=== PATIENT | male | born 1940 | race Caucasian/White ===

== ENCOUNTER 2016-10-30 15:43 | Inpatient (IN) ==
[2016-10-30] MEDS ORDERED: Aspirin 81 MG TAB.CHEW PO ONE (16:24)
[2016-10-30 17:00] LABS: INR 1.1; Prothrombin Time 11.4 Seconds (9.4-12.1)
[2016-10-30 17:02] LABS: Activated Partial Thrombo Time 33.6 Seconds (26.0-36.0); Basophils % 0.6 %; Eosinophils # 0.1 K/mcL (0.0-0.6); Eosinophils % 1.3 %; Hematocrit 47.2 % (37.5-50.1); Hemoglobin 15.2 g/dL (12.9-16.9); Immature Granulocytes % 0.3 % (0-4); Lymphocytes # 0.9 K/mcL (0.6-4.6); Lymphocytes % 12.5 %; Mean Corpuscular HGB Conc 32.2 g/dL (31.6-35.5); Mean Corpuscular Hemoglobin 30.2 pg (28.0-33.3); Mean Corpuscular Volume 93.7 fL (83.0-100.0); Monocytes # 0.5 K/mcL (0.0-1.3); Monocytes % 7.3 %; Neutrophils # 5.6 K/mcL (1.6-8.9); Platelet Count 263 K/mcL (140-400); Red Blood Count 5.04 M/mcL (4.19-5.50); Red Cell Distribution Width 12.9 % (11.5-14.5)
--- NOTE | 2016-10-30 17:04 | Emergency Department Note ---
Disposition Clinical Impression: NSTEMI (non-ST elevated myocardial infarction) Disposition: Admitted As Inpatient Condition: Fair Referrals: Darcy Garcia MD [Primary Care Provider] - Forms: ED Satisfaction Letter Time of Disposition: 17:53 Chest Pain HPI - General Chief Complaint: ED Chest Pain Stated Complaint: "heart problems" Time Seen by Provider: 10/30/16 15:46 Source: patient, family Mode of arrival: private vehicle Limitations: no limitations Vital Signs Reviewed: Yes Nursing Notes Reviewed: Yes - History of Present Illness Pt complaint: chest pain Onset (ago): hour(s) (About 2-1/2 hours ago) Duration: constant (It lasted about 20 minutes) Onset: after eating (Patient had just finished eating at [employer] and was walking to his car when he felt the discomfort.) Pain Location: substernal (Beneath the lower sternum) Severity: moderate Severity scale (1-10): 0 (Pain is gone at this point) Quality: tightness Pain Radiation: none Improves with: nothing Worsens with: nothing Associated symptoms: Reports: nausea (He felt the discomfort in his epigastrium that he says it felt like he had just eaten a big meal) Treatments prior to arrival chest pain: none - Related Data Home Medications Medication Instructions Recorded Confirmed Metoprolol [Lopressor] 25 mg PO BID 05/12/16 05/12/16 Aspirin 10/30/16 10/30/16 Allergies Allergy/AdvReac Type Severity Reaction Status Date / Time No Known Allergies Allergy Verified 05/12/16 15:28 All systems ED: reviewed and negative except as stated. Constitutional: Denies: fever, chills ENT ED: Denies: ear pain, throat pain, congestion Cardiovascular: Reports: chest pain. Denies: palpitations, dyspnea on exertion Respiratory: Denies: cough, dyspnea Gastrointestinal: Denies: vomiting Musculoskeletal: Denies: back pain Integumentary: Denies: rash Neurological: Denies: headache Chest Pain PMH - Past Medical History Medical history: Reports: hyperlipidemia Surgical history: Reports: non-contributory Psychiatric history: Reports: no psych history - Social History Smoking Status: Never smoker Alcohol use: Reports: none Drug use: Reports: none Physical Exam - General Limitations: no limitations General appearance: alert, in no apparent distress - Head Head exam: atraumatic, normocephalic - Eye Eye exam: Present: normal appearance, PERRL, EOMI - ENT ENT exam: normal exam, mucous membranes moist, normal external ear exam - Neck Neck exam: Present: normal inspection, full ROM, trachea midline - Chest Chest inspection: Present: normal inspection, symmetric chest wall rise. Absent : tenderness - Respiratory Respiratory exam: Present: normal lung sounds bilaterally. Absent: respiratory distress, wheezes - Cardiovascular Cardiovascular exam: Present: regular rate, normal rhythm, normal heart sounds - Abdominal Exam Abdominal exam: Present: soft, Non-Tender, normal bowel sounds - Extremities Exam Extremities exam: Present: normal inspection, full ROM. Absent: pedal edema - Neurological Exam Neurological exam: Present: alert, oriented X3 - Psychiatric Psychiatric exam: Present: normal affect, normal mood - Skin Skin exam: Present: warm, dry. Absent: rash Course Course Narrative: Patient presents to emergency with chest discomfort. It came on after eating at [employer]. It was associated with some lower central discomfort and some bloated feeling in his abdomen. This patient has never had trouble with his heart before. He has been physically active bleeding up until this moment. It would surprise me if this is a cardiac cause of chest discomfort. However he does have nonspecific ST abnormalities in precordial leads and we have no old EKGs to compare. Therefore we will do a cardiac workup and evaluate for other dangerous causes of chest pain. He is asymptomatic at this time so I am not initiating any actual treatment. Disposition will be based on diagnostic results and reevaluation. We will of course immediately reassessed patient if he starts to have symptoms again. - Reevaluation(s) Reevaluation #1: The patient's troponin came back elevated. Coupling this with an abnormal EKG ( the chronicity of the changes we are unable to ascertain) and the symptoms that the patient described, this is clearly an acute coronary syndrome issue. I spoke to the ophthalmic surgical assistant, Dr. Schaeffer, and he recommended admission to the hospital and starting heparin. He recommended admission to the hospitalist service. I went and called the hospitalist who has accepted the patient for admission. I counseled the patient and family on the diagnosis and what to expect in house. Time: 17:51 - Consultations Consultation #1: Dr. Schaeffer, cardiology - I discussed the case including presentation and diagnostic results and patient's current condition with the ophthalmic surgical assistant. He recommended heparinization and admission to the hospitalist service and a cardiology consult for possible heart catheterization tomorrow. Time: 17:51 Consultation #2: Dr. An, hospitalist - I discussed the case with the hospitalist. He has accepted the patient for admission. Time: 17:52 Vital Signs Temperature 97.8 F 10/30/16 15:59 Pulse Rate 74 10/30/16 15:59 Respiratory Rate 16 10/30/16 15:59 Blood Pressure 147/81 10/30/16 15:59 O2 Sat by Pulse Oximetry 97 10/30/16 15:59 Temperature 97.8 F 10/30/16 15:59 Pulse Rate 69 10/30/16 16:50 Respiratory Rate 16 10/30/16 16:50 Blood Pressure 149/88 10/30/16 16:50 O2 Sat by Pulse Oximetry 99 10/30/16 16:50 Oxygen Delivery Oxygen Delivery Room Air Chest Pain - Lab Data Lab results reviewed: Yes I reviewed the patient's lab results. Result diagrams: 10/30/16 16:48 10/30/16 16:48 Lab Results 10/30/16 10/30/16 10/30/16 Range/Units 16:48 16:48 16:48 WBC (4.3-11.1) K/mcL RBC (4.19-5.50) M/mcL Hgb (12.9-16.9) g/dL Hct (37.5-50.1) % MCV (83.0-100.0) fL MCH (28.0-33.3) pg MCHC (31.6-35.5) g/dL RDW (11.5-14.5) % Plt Count (140-400) K/mcL MPV (9.4-12.4) fL Immature Gran % (0-4) % Seg Neutrophils % % Lymphocytes % % Monocytes % % Eosinophils % % Basophils % % Neutrophils # (1.6-8.9) K/mcL Lymphocytes # (0.6-4.6) K/mcL Monocytes # (0.0-1.3) K/mcL Eosinophils # (0.0-0.6) K/mcL Basophils # (0.0-0.2) K/mcL PT 11.4 (9.4-12.1) Seconds INR 1.1 APTT 33.6 (26.0-36.0) Seconds Sodium (136-145) mEq/L Potassium (3.5-4.5) mEq/L Chloride (98-109) mEq/L Carbon Dioxide (19-29) mEq/L BUN (8-26) mg/dL Creatinine (0.72-1.25) mg/dL Est GFR ( Amer) (> 60) Est GFR (Non-Af Amer) (> 60) BUN/Creatinine Ratio (6-26) Glucose (70-99) mg/dL Calculated Osmolality (280-300) Calcium (8.6-10.8) mg/dL Total Bilirubin 1.4 H (0.2-1.2) mg/dL Direct Bilirubin 0.5 (0.0-0.5) mg/dL Indirect Bilirubin 0.9 (0.0-1.2) mg/dL AST 21 (5-34) Units/L ALT 26 (0-55) Units/L Alkaline Phosphatase 134 H (38-126) Units/L Troponin I (0-0.03) ng/mL Serum Total Protein 7.6 (6.0-8.3) g/dL Albumin 3.6 (3.5-5.0) g/dL Globulin 4.0 H (2.4-3.5) g/dL Albumin/Globulin Ratio 0.9 L (1.1-2.2) Amylase 95 (25-125) Units/L Lipase 49 (8-78) Units/L 10/30/16 10/30/16 10/30/16 Range/Units 16:48 16:48 16:48 WBC 7.1 (4.3-11.1) K/mcL RBC 5.04 (4.19-5.50) M/mcL Hgb 15.2 (12.9-16.9) g/dL Hct 47.2 (37.5-50.1) % MCV 93.7 (83.0-100.0) fL MCH 30.2 (28.0-33.3) pg MCHC 32.2 (31.6-35.5) g/dL RDW 12.9 (11.5-14.5) % Plt Count 263 (140-400) K/mcL MPV 10.0 (9.4-12.4) fL Immature Gran % 0.3 (0-4) % Seg Neutrophils % 78.0 % Lymphocytes % 12.5 % Monocytes % 7.3 % Eosinophils % 1.3 % Basophils % 0.6 % Neutrophils # 5.6 (1.6-8.9) K/mcL Lymphocytes # 0.9 (0.6-4.6) K/mcL Monocytes # 0.5 (0.0-1.3) K/mcL Eosinophils # 0.1 (0.0-0.6) K/mcL Basophils # 0.0 (0.0-0.2) K/mcL PT (9.4-12.1) Seconds INR APTT (26.0-36.0) Seconds Sodium 142 (136-145) mEq/L Potassium 4.0 (3.5-4.5) mEq/L Chloride 107 (98-109) mEq/L Carbon Dioxide 25 (19-29) mEq/L BUN 17 (8-26) mg/dL Creatinine 1.35 H (0.72-1.25) mg/dL Est GFR ( Amer) > 60 (> 60) Est GFR (Non-Af Amer) 52 L (> 60) BUN/Creatinine Ratio 13 (6-26) Glucose 108 H (70-99) mg/dL Calculated Osmolality 296 (280-300) Calcium 8.7 (8.6-10.8) mg/dL Total Bilirubin (0.2-1.2) mg/dL Direct Bilirubin (0.0-0.5) mg/dL Indirect Bilirubin (0.0-1.2) mg/dL AST (5-34) Units/L ALT (0-55) Units/L Alkaline Phosphatase (38-126) Units/L Troponin I 0.07 H* (0-0.03) ng/mL Serum Total Protein (6.0-8.3) g/dL Albumin (3.5-5.0) g/dL Globulin (2.4-3.5) g/dL Albumin/Globulin Ratio (1.1-2.2) Amylase (25-125) Units/L Lipase (8-78) Units/L - Radiology Data Radiology results reviewed: Yes I reviewed the patient's radiology results. - EKG Data EKG attestation: Yes I reviewed and interpreted this EKG. EKG shows normal: sinus rhythm, axis, intervals, QRS complexes ST segment depression in: I, aVL, v2, v3, v4 Interpretation: nonspecific ST-T wave changes
[2016-10-30 17:08] LABS: BUN/Creatinine Ratio 13 (6-26); Blood Urea Nitrogen 17 mg/dL (8-26); Calcium 8.7 mg/dL (8.6-10.8); Carbon Dioxide 25 mEq/L (19-29); Chloride 107 mEq/L (98-109); Glucose 108 mg/dL (70-99); Osmolality,Calculated 296 (280-300); Sodium 142 mEq/L (136-145); eGFR For African Americans > 60 (> 60); eGFR For Non-African Americans 52 (> 60)
[2016-10-30 17:09] LABS: Albumin 3.6 g/dL (3.5-5.0); Albumin/Globulin Ratio 0.9 (1.1-2.2); Bilirubin,Direct 0.5 mg/dL (0.0-0.5); Bilirubin,Indirect 0.9 mg/dL (0.0-1.2); Bilirubin,Total 1.4 mg/dL (0.2-1.2); Total Protein 7.6 g/dL (6.0-8.3)
[2016-10-30] MEDS ORDERED: *HR* Heparin 5,000 UNIT/ML VIAL IVP ONE (17:42)
[2016-10-30] MEDS ORDERED: *HR* Heparin 5,000 UNIT/ML VIAL IVP PRN ×2 (17:42)
[2016-10-30] MEDS: Heparin 25,000 UNIT/500 ML D5W 25,000 UNIT/500 ML MLS IVC SCH (18:15)
[2016-10-30] MEDS ORDERED: Naloxone 0.4 MG/ML INJ IVP PRN (19:33)
[2016-10-30] MEDS ORDERED: *HR* Morphine 2 MG/ML SYRINGE IVP PRN (19:33)
--- NOTE | 2016-10-30 19:41 | Internal Med History&Physical ---
Date of Encounter: 10/30/16 Time of Encounter: 08:15 Assessment and Plan (1) NSTEMI (non-ST elevated myocardial infarction) Current visit: Yes Status: Suspected Patient with chest pain with elevation in troponins. Observation in the hospital. IV heparin and management for NSTEMI. Trend troponins. Telemetry. Cardiology consult. Continue beta lavern, aspirin. Patient reports possible adverse reaction to atorvastatin. We will place patient on simvastatin instead. High risk for complications. Will get 2-D echocardiogram in the morning. May need cardiac catheterization or cardiac stress test in the morning. (2) Essential hypertension Current visit: Yes Status: Chronic Blood pressure currently elevated. We will resume home medications. Monitor blood pressure closely. (3) Hyperlipidemia Current visit: Yes Status: Chronic Check lipid profile. Start simvastatin. Qualifiers: Hyperlipidemia type: mixed hyperlipidemia Qualified Code(s): E78.2 - Mixed hyperlipidemia Internal Medicine - H&P: HPI Chief complaint: Chest pain Admitted From: Emergency Dept Plans for Post Hospital Care: Home History of present illness: Mr. Breaux is a 76 year old male patient with history of essential hypertension, hyperlipidemia who presented to the ER with complaints of chest pain that began this afternoon. Patient had just walked from his car to his home when he began to develop central chest pain that was nonradiating. Not associated with any shortness of breath. No palpitations. No cough or sputum production. No dizziness or lightheadedness. Has never had similar symptoms in the past. He had a stress test done several years back which was negative. Patient was up and was started on atorvastatin recently for borderline hypercholesterolemia. However he developed some cramps in his hands and he was taken off it for the past week. His cramps seem to have subsided. Past Med Surg Social Fam HX - Past Medical History Medical history: hyperlipidemia, hypertension Psychiatric history: no psych history - Past Surgical History Surgical History: non-contributory - Social History Smoking Status: Never smoker Smokeless Tobacco Status: No Alcohol use: none Drug use: none - Additional Family History Additional family history: Heart disease in the family including parents and siblings. Internal Medicine - H&P: Meds Metoprolol [Lopressor] 25 mg PO BID 05/12/16 [History] Aspirin Enteric Coated [Aspirin EC] 81 mg PO DAILY 10/30/16 [History] Atorvastatin Calcium [Lipitor] 20 mg PO DAILY 10/30/16 [History] Juice Plus 1 cap PO DAILY 10/30/16 [History] Vit C/Vit E/Lutein/Min/[place]-3 [Ocuvite Softgel] 1 each PO DAILY 10/30/16 [ History] Allergies No Known Allergies Allergy (Verified 05/12/16 15:28) All Systems PM: A 10-system review of systems was performed and is negative for pertinent findings except as documented above in the HPI. - Constitutional Constitutional: no chills, no fever(s), no night sweats - EENT Eyes: no change in vision, no discharge, no pain, no photophobia Ears: no ear discharge, no ear pain, no tinnitus Nose, mouth and throat: no dysphagia, no nasal discharge, no neck pain, no sore throat - Cardiovascular Cardiovascular ROS IM: chest pain, no diaphoresis, no dyspnea, no lightheadedness, no palpitations, no syncope - Respiratory Respiratory: no cough, no dyspnea, no wheezing, no excessive phlegm production - Gastrointestinal Gastrointestinal: dyspepsia, no abdominal pain, no diarrhea, no hematemesis, no hematochezia, no melena, no nausea, no vomiting - Musculoskeletal Musculoskeletal ROS IM: no numbness, no tingling - Integumentary Integumentary IM: no rash, no unusual bruising - Neurological Neurological ROS: no confusion, no convulsions, no focal weakness, no numbness, no tingling, no tremor(s) - Hematologic/Lymphatic Hematologic/Lymphatic: no easy bruising - Constitutional Vitals: Temp Pulse Resp BP Pulse Ox 97.8 F 73 17 145/86 99 10/30/16 15:59 10/30/16 19:29 10/30/16 19:29 10/30/16 19:29 10/30/16 19:29 General appearance: Present: cooperative, mild distress, A&O X 3, pleasant, answers questions appropriately - Eye Eye exam: Present: EOMI, PERRL, conjuntiva pink, sclera anicteric - Neck Neck exam general surgery: Present: supple, trachea midline. Absent: lymphadenopathy - Respiratory Respiratory exam: Present: CTAB. Absent: accessory muscle use, rales, rhonchi, wheezes - Cardiovascular Cardiovascular exam: Present: RRR, +S1, +S2. Absent: diastolic murmur, gallop, rubs, systolic murmur - GI/Abdominal GI/Abdominal exam: Present: normal bowel sounds, soft, no peritoneal signs. Absent: distended, tenderness - Extremities Exam Extremities exam: Present: warm, radial pulses palpable and symetrical. Absent : calf tenderness, cyanotic, pedal edema - Neurological Exam Neurological exam: Present: alert, oriented X3, no focal deficits, strengths equal and symetr throughout. Absent: facial droop, speech deficit - Psychiatric Psychiatric exam: Present: normal affect, normal mood - Skin Skin exam: Present: dry, intact Internal Med - H&P Results - Labs CBC & Chem 7: 10/30/16 16:48 10/30/16 16:48 - EKG Data -: EKG Interpreted by Myself EKG shows normal: sinus rhythm - EKG Data EKG comments: 10/30/16 20:39 ST depression present in I, aVL, v2, v3, v4 - Impressions Chest x-ray shows no acute process - Attending Attestation This document has been at least partially created by [employer] recognition technology by Dr. Garces. Errors in grammar, wording or other phrases may exist. If errors are found after the documentation is signed, they will be addressed individually in the addendum section of this document when appropriate.
[2016-10-30 19:54] LABS: Hemoglobin A1C 5.5 %
[2016-10-30 20:40] LABS: Phosphorous 2.4 mg/dL (2.3-4.7)
[2016-10-31 01:02] LABS: Activated Partial Thrombo Time 152.5 Seconds (26.0-36.0)
[2016-10-31 01:12] LABS: Heparin anti-factor XA UFH 0.54 IU/mL (0.30-0.70)
[2016-10-31 05:59] LABS: Basophils # 0.1 K/mcL (0.0-0.2); Basophils % 0.7 %; Eosinophils # 0.1 K/mcL (0.0-0.6); Eosinophils % 1.8 %; Hematocrit 41.6 % (37.5-50.1); Hemoglobin 13.9 g/dL (12.9-16.9); Immature Granulocytes % 0.3 % (0-4); Lymphocytes # 1.1 K/mcL (0.6-4.6); Lymphocytes % 15.7 %; Mean Corpuscular HGB Conc 33.4 g/dL (31.6-35.5); Mean Corpuscular Hemoglobin 30.6 pg (28.0-33.3); Mean Corpuscular Volume 91.6 fL (83.0-100.0); Mean Platelet Volume 10.1 fL (9.4-12.4); Monocytes # 0.7 K/mcL (0.0-1.3); Monocytes % 9.4 %; Neutrophils # 5.1 K/mcL (1.6-8.9); Platelet Count 224 K/mcL (140-400); Red Blood Count 4.54 M/mcL (4.19-5.50); Red Cell Distribution Width 12.8 % (11.5-14.5); Segmented Neutrophils % 72.1 %
[2016-10-31 06:04] LABS: INR 1.1
[2016-10-31 06:14] LABS: Chol/HDL Ratio 3.5 (0-4.9)
[2016-10-31] MEDS ORDERED: Nitroglycerin 1 INCH/GM PACKET TP ONE (06:55)
[2016-10-31] MEDS ORDERED: 0.9 % Sodium Chloride 1,000 ML IVC SCH (09:30)
[2016-10-31] MEDS: Aspirin Enteric Coated 81 MG Tablet PO SCH (09:36)
--- NOTE | 2016-10-31 09:37 | Cardiology Consult Note ---
Date of Encounter: 10/31/16 Time of Encounter: 08:00 Assessment and Plan (1) NSTEMI (non-ST elevated myocardial infarction) Current Visit: Yes Status: Suspected Per cardiology: -Patient with one episode of chest pain with excertion. Pain relieved by rest. -Troponins 0.07, 0.36, 0.40. -Patient with history of HTN, hyperlipidemia, and advanced age. -Echocardiogram pending. -Creatinine today 1.35. Baseline 1.0-1.1. -On asa, beta lavern, statin, and heparin drip, -Patient reports intolerance to atorvastatin, simvastatin ordered per primary service. Educated patient on need for statin and patient agreeable to try simvastatin. -Will order IV hydration for slight elevation in creatinine today. -Will order cardiac diet today. -Will perform left heart catheterization 11/01/16, unless patient acutely worsens or if kidney function worsens. -Discussed risks and benefits of LHC with patient and family. Patient and family agreeable for LHC. - notified of need for LHC 11/01/16. (DAILY) (2) Chest pain Current Visit: No Status: Acute Per cardiology: -Patient with one episode of midsternal chest pressure upon excertion. -Chest pain relieved with rest. -Tropnins elevated. Suspect NSTEMI. Cardiac rehab ordered. -On asa, statin, beta lavern, and heparin drip. -CUrrently chest pain free. -Plan for LHC tomorrow after IV hydration today. (DAILY) Qualifiers: Chest pain type: other chest pain Qualified Code(s): R07.89 - Other chest pain; R07.8 - Other chest pain (3) Essential hypertension Current Visit: Yes Status: Chronic Per cardiology: -Patient with known history of hypertension. -Currently on beta lavern. -BP 120-150s sytolic and 70-90 diastolic, -Home medications resumed per primary service. -Will continue to monitor. (DAILY) (4) Hyperlipidemia Current Visit: Yes Status: Chronic Per cardiology: -Patient states known history of "borderline" hyperlipidemia. -Patient failed outpatient treatment with atorvastatin due to myalgias. -Simvastatin ordered per primary service. -Triglycerides 84, Cholesterol 138, LDL 81, HDL 39. -Will continue to monitor. (DAILY) Qualifiers: Hyperlipidemia type: mixed hyperlipidemia Qualified Code(s): E78.2 - Mixed hyperlipidemia (5) ELLA (acute kidney injury) Current Visit: Yes Status: Acute Per Cardiology: Mild. Has baseline normal kidney function. Will gently hydrate prior to cath and monitor. Discussion w patient/family: The assessment and plan as outlined above was discussed with the patient and/or family members who expressed understanding and agreement. All questions were answered. Thank you for involving us in the care of your patient. Please call with any questions. Patient was seen and examined with ENID Matute. Discussed and reviewed with . History of Present Illness Consult date: 10/30/16 Requesting physician: Alex Mckee Consult reason: NSTEMI Chief complaint: Chest pain History of present illness: Mr. Breaux is a 76 year old male who presented to the ER yesterday with one episode of mid sternal chest pressure. Patient states he was walking from his car into his house, when it felt like there was pressure in his chest. Patient states he went into the house and sat down and after 20 minutes the pain was relieved. Patient has never had chest pain prior. Patient states he has never had "heart problems" before. Patient states he has never had an echocardiogram prior. He states he had an excercise stress test "about 10 years ago." Patient states it was "normal." Patient currently chest pain free. (DAILY) Patient's risk factor for CAD include HTN, hyperlipidemia, and age. (DAILY) Past Med Surg Social Fam HX - Past Medical History Attestation: Yes The following information was validated with the patient. Source: patient, obtained from family Medical history: hyperlipidemia, hypertension Psychiatric history: no psych history - Past Surgical History Surgical History: non-contributory - Social History Smoking Status: Never smoker Smokeless Tobacco Status: No Alcohol use: none Drug use: none Medications and Allergies Metoprolol [Lopressor] 25 mg PO BID 05/12/16 [History] Aspirin Enteric Coated [Aspirin EC] 81 mg PO DAILY 10/30/16 [History] Atorvastatin Calcium [Lipitor] 20 mg PO DAILY 10/30/16 [History] Juice Plus 1 cap PO DAILY 10/30/16 [History] Vit C/Vit E/Lutein/Min/[place]-3 [Ocuvite Softgel] 1 each PO DAILY 10/30/16 [ History] Allergies No Known Allergies Allergy (Verified 05/12/16 15:28) All Systems Review: A 10-system review of systems was performed and is negative for pertinent findings except as documented above in the HPI. - Cardiovascular Cardiovascular: as per HPI, chest pain with exertion Physical Examination Vital Signs, Last 4 Hours Temp Pulse Resp BP Pulse Ox 10/31/16 07:22 98.4 F 72 16 127/77 99 10/31/16 05:37 98.5 F 87 16 146/90 93 L General: Conversant, No Apparent Distress HEENT: Atraumatic, Normocephaly, Mucus Membranes Moist Neck: No JVD, Normal carotid pulses Cardiac: Reg Rate and Rhythm, Normal S1 and S2, No Murmur Lungs: No Wheeze, Rales, Rhonchi Neuro: Alert and responsive, No focal deficits noted Abdomen: Soft, Non-Tender Skin: No rashes noted on visualized skin Musculoskeletal: No Chest Wall Tenderness Extremities: No Clubbing, No Cyanosis, No Edema, Normal Pulses Results 10/31/16 05:35 10/31/16 09:54 Lab Results 10/30/16 10/30/16 10/31/16 23:58 23:58 05:35 WBC 7.1 Hgb 13.9 Hct 41.6 Plt Count 224 INR APTT 152.5 H* D Troponin I 0.36 H* 10/31/16 10/31/16 05:35 05:35 WBC Hgb Hct Plt Count INR 1.1 APTT Troponin I 0.40 H* Impressions Chest X-Ray 10/30/16 16:24 IMPRESSION: No acute cardiopulmonary disease. D/ / Kim Ortiz MD / Kim Ortiz MD Interpreting Provider: Kim Ortiz MD Active Medications Aspirin (Aspirin Ec) 81 mg PO DAILY ABDIRASHID Stop: 05/02/17 09:01 Last Admin: 10/31/16 09:36 Dose: 81 mg Heparin Sodium (Porcine) (Heparin) 4,000 unit IVP Q6HR PRN PRN Reason: SEE COMMENTS Stop: 05/01/17 17:43 Heparin Sodium (Porcine) (Heparin) 2,000 unit IVP Q6H PRN PRN Reason: SEE COMMENTS Stop: 05/01/17 17:43 Heparin Sodium/Dextrose (Heparin 25,000 Unit/500 Ml D5w) 25,000 unit in 500 mls @ 26.671 mls/hr IVC .[id number] ABDIRASHID; 12 UNIT/KG/HR PRN Reason: Protocol Stop: 05/01/17 17:46 Last Titration: 10/31/16 02:05 Dose: 9 unit/kg/hr, 20.003 mls/hr Sodium Chloride (0.9 % Sodium Chloride) 1,000 mls @ 50 mls/hr IVC .Q20H ABDIRASHID Stop: 11/01/16 05:29 Metoprolol Tartrate (Lopressor) 25 mg PO BID [facility] Stop: 05/01/17 21:01 Last Admin: 10/31/16 09:35 Dose: 25 mg Morphine Sulfate (Morphine Sulfate) 2 mg IVP Q4HR PRN PRN Reason: Severe Pain (7-10) Stop: 05/01/17 19:34 Naloxone HCl (Narcan) 0.4 mg IVP Q2MIN PRN PRN Reason: Opioid Reversal Stop: 05/01/17 19:34 Simvastatin (Zocor) 20 mg PO HS ABDIRASHID PRN Reason: Protocol Stop: 05/01/17 21:16 Last Admin: 10/30/16 22:38 Dose: Not Given - Imaging and Cardiology Chest Xray: report reviewed Cardiac cath: pending - EKG Interpretation EKG results cardiology: personally reviewed (ECG with sinus rhythm, heart rate 67. ST depression noted in I, V2, V3, V4, and V5, and V6.), other (Telemtry reviewed with average HR 70, occasional PVCs. 2 episodes of couplet PVCs noted. 2 runs of non-sustained ventricular tachycardia. One episode 44 beats and the other 19 beats. Occasional PVCs noted.) Consult Discharge Plan - Plan Referrals: Darcy Garcia MD [Primary Care Provider] -
--- NOTE | 2016-10-31 10:03 | ECHO - Doppler Report ---
Echocardiogram Name: James Breaux Date of Study: 10/31/2016 Date: 1940 Ht: 73.0 in Medical Record#: [id number] Age: 76 Wt: 240.0 lb Gender: Male BSA: 2.33 Order #: [id number] Location: [facility] Room #: [id number] Reading Physician: Vipin Hazel MD, [facility] Retail Consultant: Rosalina Pyle Ordering Physician: Preston Garces MD Primary Physician: Darcy Garcia MD Indications: Chest pain/NSTEMI Impressions: LVEF 55-60%. No pulmonary hypertension. Mild left ventricular diastolic dysfunction. No significant valvular dysfunction. Left Ventricular Wall Motion: Rest Echo Findings All wall segments showed normal motion. Findings: Right Ventricle * Normal right ventricular structure and function. Aorta * Normally sized aortic root. Pericardium * The pericardium appears normal. ECG Findings * Normal sinus rhythm. Left Atrium * Mildly dilated left atrium. Tricuspid Valve * No tricuspid stenosis. * Trace tricuspid regurgitation. * Estimated RVSP is 22 mmHg. * Estimated RA pressure is 3-5 mmHg. * No pulmonary hypertension. Mitral Valve * Normal mitral valve structure. * Trace mitral regurgitation. * No mitral stenosis. Left Ventricle * Mild left ventricular diastolic dysfunction. * LVEF 55-60%. Aortic Valve * Normal aortic valve structure. * Trace aortic regurgitation. * No aortic stenosis. IVC * The IVC is not well evaluated. Interatrial Septum * Interatrial septum not well evaluated. Right Atrium * Right atrium is not well visualized. Study Quality * Technically sub-optimal due to body habitus. History Hypercholesteremia Family History of CAD Measurements: BP: 146/ 90 2D Normal Values RVIDd: 3.80 cm <2.7 cm IVSd: 1.00 cm 0.6 - 1.0 cm LVIDd: 4.90 cm 3.7 - 5.6 cm LVPWd: 1.00 cm 0.6 - 1.1 cm LVIDs: 3.20 cm 1.5 - 3.6 cm AO: 2.80 cm < 4.0 cm LA: 3.90 cm 2.0 - 4.0cm %FS: 34.70 cm >25 % LA volume: 52 Mitral Valve Peak E:.70 m/sec Peak A:.73 m/sec E/A Ratio:1 Peak E' Lat Zander:7.51 cm/s Peak E' Med Zander:6.63 cm/s E/E' Lat Ratio:9.3 E/E' Med Ratio:10.6 Tricuspid Valve TV Regurg Peak Grad: 22.00mmHg TV Regurg Peak Zander: 2.36m/sec Updated by Vipin Hazel MD, [facility] on 10/31/2016 9:56:48 AM electronically signed on 10/31/2016 9:57:15 AM with status of Final Wall Motion Cope: 1=Normal, 2=Hypokinesis, 3=Akinesis, 4=Dyskinesis, 5=Aneurysmal, 6=Hyperkinetic, X=Not Visualized (Blank)=Missing
[2016-10-31 10:16] LABS: BUN/Creatinine Ratio 13 (6-26); Blood Urea Nitrogen 12 mg/dL (8-26); Calcium 8.1 mg/dL (8.6-10.8); Carbon Dioxide 22 mEq/L (19-29); Chloride 109 mEq/L (98-109); Glucose 117 mg/dL (70-99); Osmolality,Calculated 289 (280-300); Sodium 139 mEq/L (136-145); eGFR For African Americans > 60 (> 60); eGFR For Non-African Americans > 60 (> 60)
--- NOTE | 2016-10-31 14:20 | Internal Med Progress Note ---
Date of Encounter: 10/31/16 Time of Encounter: 14:18 - Assessment and plan (1) NSTEMI (non-ST elevated myocardial infarction) Current Visit: Yes Status: Acute Assessment and plan: Patient has been admitted with chest pain and troponin elevation. Continue telemetry monitoring. Serum troponin currently trending down. Continue IV heparin drip along with aspirin and beta lavern. Cardiology consult appreciated, plan for possible left heart catheterization tomorrow. Supportive care. (2) ELLA (acute kidney injury) Current Visit: Yes Status: Resolved Assessment and plan: Likely related to prerenal/dehydration. Improved with IV hydration. (3) Essential hypertension Current Visit: Yes Status: Chronic Assessment and plan: Blood pressure well controlled. Continue home medications. (4) Hyperlipidemia Current Visit: Yes Status: Chronic Assessment and plan: Patient reports developing small joint pain in bilateral hands along with myalgia with statins in the past. Hold Zocor until left heart cath and determine further treatment. Qualifiers: Hyperlipidemia type: mixed hyperlipidemia Qualified Code(s): E78.2 - Mixed hyperlipidemia - Subjective Interval history: Feels better. Improved chest pain. No shortness of breath or palpitations. - Constitutional Vitals: Temp Pulse Resp BP Pulse Ox 98.4 F 75 18 111/75 96 10/31/16 11:05 10/31/16 11:05 10/31/16 11:05 10/31/16 11:05 10/31/16 11:05 General appearance: Present: A&O X 3, answers questions appropriately - Respiratory Respiratory exam: Present: CTAB. Absent: accessory muscle use, rales, rhonchi, wheezes - Cardiovascular Cardiovascular exam: Present: RRR, +S1, +S2. Absent: diastolic murmur, gallop, rubs, systolic murmur - GI/Abdominal GI/Abdominal exam: Present: normal bowel sounds, soft, no peritoneal signs. Absent: distended, tenderness - Extremities Exam Extremities exam: Present: warm, radial pulses palpable and symetrical. Absent : calf tenderness, cyanotic, pedal edema Internal Medicine: Result - Labs CBC & Chem 7: 10/31/16 05:35 10/31/16 09:54 Labs: Short CBC 10/31/16 Range/Units 05:35 WBC 7.1 (4.3-11.1) K/mcL Hgb 13.9 (12.9-16.9) g/dL Hct 41.6 (37.5-50.1) % Plt Count 224 (140-400) K/mcL Neutrophils # 5.1 (1.6-8.9) K/mcL BMP 10/31/16 09:54 Sodium 139 Potassium 4.0 Chloride 109 Carbon Dioxide 22 BUN 12 Creatinine 0.93 Glucose 117 H Calcium 8.1 L Cardiac Enzymes 10/30/16 10/31/16 10/31/16 Range/Units 23:58 05:35 09:54 Troponin I 0.36 H* 0.40 H* 0.29 H* (0-0.03) ng/mL - ABG Interpretation ABG results: PT/INR, D-dimer PT 12.0 Seconds (9.4-12.1) 10/31/16 05:35 D-Dimer 327 ng/mLFEU (0-500) 10/31/16 09:54 Consult Discharge Plan - Plan Referrals: Darcy Garcia MD [Primary Care Provider] -
[2016-10-31] MEDS: Heparin 25,000 UNIT/500 ML D5W 25,000 UNIT/500 ML MLS IVC SCH (18:48)
[2016-11-01 04:46] LABS: BUN/Creatinine Ratio 12 (6-26); Blood Urea Nitrogen 12 mg/dL (8-26); Calcium 8.2 mg/dL (8.6-10.8); Carbon Dioxide 22 mEq/L (19-29); Chloride 111 mEq/L (98-109); Glucose 110 mg/dL (70-99); Osmolality,Calculated 292 (280-300); Potassium 4.1 mEq/L (3.5-4.5); Sodium 141 mEq/L (136-145); eGFR For African Americans > 60 (> 60); eGFR For Non-African Americans > 60 (> 60)
[2016-11-01 04:48] LABS: Basophils % 0.5 %; Eosinophils # 0.1 K/mcL (0.0-0.6); Eosinophils % 1.5 %; Hematocrit 41.8 % (37.5-50.1); Hemoglobin 14.1 g/dL (12.9-16.9); Immature Granulocytes % 0.3 % (0-4); Lymphocytes # 1.1 K/mcL (0.6-4.6); Lymphocytes % 16.9 %; Mean Corpuscular HGB Conc 33.7 g/dL (31.6-35.5); Mean Corpuscular Hemoglobin 31.1 pg (28.0-33.3); Mean Corpuscular Volume 92.3 fL (83.0-100.0); Mean Platelet Volume 10.4 fL (9.4-12.4); Monocytes # 0.6 K/mcL (0.0-1.3); Monocytes % 9.8 %; Neutrophils # 4.7 K/mcL (1.6-8.9); Platelet Count 220 K/mcL (140-400); Red Blood Count 4.53 M/mcL (4.19-5.50); Red Cell Distribution Width 12.8 % (11.5-14.5)
--- NOTE | 2016-11-01 06:21 | Pre-Sedation Evaluation ---
Pre-sedation evaluation - Pre-sedation checklist Date of procedure: 11/01/16 Procedure: [facility] Recent Vitals: Last Vital Signs Temp 97.8 F 11/01/16 00:45 Pulse 67 11/01/16 06:03 Resp 18 11/01/16 06:03 BP 140/94 11/01/16 06:03 Pulse Ox 96 11/01/16 06:03 H&P (including ROS) documented in medical record: Yes Previous reaction to sedatives/anesthetics: No Dietary Status: NPO after Midnight Airway Assessment: Patient can open mouth completely, TMJ function normal ASA Classification *see protocol: CLASS II-Mild systemic disease Plan of Care: Pt appropriate candidate for procedure/moderate/conscious sedation , Risks/benefits of procedure/sedation discussed w/ patient/family
[2016-11-01] MEDS ORDERED: Nitroglycerin 1,000 MCG/10 ML VIAL IV ONE (07:48)
[2016-11-01] MEDS ORDERED: 0.9 % Sodium Chloride 1,000 ML ONE ×3 (07:48→09:43)
[2016-11-01] MEDS ORDERED: Heparin 1,000 UNITS/500 mL NS 500 ML ONE ×2 (07:48→09:38)
[2016-11-01] MEDS ORDERED: *HR* Heparin 10,000 UNIT/10 ML VIAL ONE (07:48)
[2016-11-01] MEDS ORDERED: Verapamil 5 MG/2 ML VIAL ONE (07:48)
[2016-11-01] MEDS: Aspirin Enteric Coated 81 MG Tablet PO SCH (07:58)
[2016-11-01] MEDS ORDERED: *HR* FentaNYL (PF) 100 MCG/2 ML VIAL ONE (08:01)
[2016-11-01] MEDS ORDERED: *HR* Midazolam HCl 2 MG/2 ML VIAL ONE ×2 (08:01→08:32)
[2016-11-01] MEDS ORDERED: Tirofiban 12.5 MG/250ML 12.5 MG/250 ML BAG ONE (08:50)
[2016-11-01] MEDS ORDERED: *HR* Ticagrelor 90 MG TABLET ONE (09:55)
[2016-11-01] MEDS ORDERED: Tirofiban 12.5 MG/250ML 12.5 MG/250 ML BAG IVC SCH (10:15)
--- NOTE | 2016-11-01 10:17 | Invasive Diagnostic Lab Proc ---
Name: James Breaux Date of Study: 11/01/2016 Date: 1940 Ht: 73.0in Medical Record#: [id number] Age: 76 Wt: 237.44lb Gender: Male BSA: 2.31 Order #: [id number] BMI: 31.33 Physicians Procedure Physician: Vipin Hazel MD, [facility] Referring MD: Referring MD: Staff Name Position Time In Sites, [facility] RT (R) Monitor 08:27 AM Edel Hernandez RT Scrub 08:27 AM Rivka Melendrez RN Huller Operator 08:27 AM Indications Indication Non-Stemi Procedures Performed Procedure L HRT ARTERY/VENTRICLE ANGIO PRQ CARD MIKY STENT W/ANGIO 1 VSL PRQ CARD MIKY STENT W/ANGIO 1 VSL IVUS CORONARY 1ST VESSEL S\\T\\I Pre-Procedure Checklist Informed consent is complete signed and on chart. H\\T\\P is on chart. ID band is on and ID verified with patient. Patient NPO for procedure The procedure was described for the patient and questions were answered. Blood Pressure: 168/98 ECG is on chart. Rhythm: NSR Plan of Care Patient will tolerate the procedure without complications. Adequate level of comfort will be maintained. Hemodynamics will remain stable Patient will recover from procedure without complications. Respiratory function will be maintained. Cardiac rhythm will remain stable. Patient temperature will be maintained. Patient and/or family have verbalized understanding of the procedure. Patient Education Chief Complaint/Reason for Test: Cardiac Cath Developmental Category: Geriatric (65+ years) Developmentally Appropriate for Age: Yes Learning Barriers: None Education Needs: Procedure Education Method: Verbal Information Taught: Cardiac Cath Educational Evaluation: Able to repeat information Intravenous Access Time IV Size Location DC'd Fluid/Drip Rate Units RN 18g 1 09/02" Patent On Arrival Rt Antecubital 0.9NaCl 25 ml/hr Rivka Melendrez RN Allergies No Known Allergies Vital Signs Time BP (mmHg) HR (bpm) O2 Sat. RR (bpm) LOC 08:26 AM 168 / 98 74 97 % 16 5 = Fully awake and oriented or at pre-proc level 08:28 AM / % 4 = Oriented but drowsy 09:23 AM / % 5 = Fully awake and oriented or at pre-proc level 08:31 AM 146 / 88 67 98 % 15 08:36 AM 135 / 77 66 96 % 17 08:41 AM 123 / 81 67 96 % 13 08:46 AM 131 / 78 65 96 % 14 08:51 AM 136 / 75 69 97 % 15 08:56 AM 123 / 82 67 96 % 16 09:01 AM 128 / 77 65 96 % 15 09:06 AM 132 / 83 67 97 % 14 09:11 AM 143 / 86 59 97 % 10 09:16 AM 134 / 87 58 96 % 16 09:21 AM 121 / 74 69 96 % 14 08:21 AM 158 / 94 79 98 % 08:26 AM 168 / 98 69 98 % 13 09:26 AM 121 / 89 60 96 % 12 09:31 AM 138 / 84 61 97 % 22 09:37 AM 148 / 90 54 97 % 22 09:41 AM 151 / 86 57 97 % 14 09:46 AM 135 / 83 55 97 % 14 09:51 AM 133 / 82 61 99 % 8 09:56 AM 126 / 92 62 99 % 16 Procedural Medications Time Medication Dose Units Method Given By 08:27 AM Oxygen 2 L/min nasal cannula Rivka Melendrez RN 08:21 AM Versed 3 mg Intravenous Rivka Melendrez RN 08:21 AM Fentanyl 50 mcg Intravenous Rivka Melendrez RN 08:29 AM Lidocaine 2% 0.5 ml Subcutaneous Vipin Hazel MD, FACC 08:31 AM Nitroglycerin 200 mcg Verapamil 2.5 mg Intraarterial Vipin Hazel MD, FACC 08:34 AM Lidocaine 2% 10 ml Subcutaneous Vipin Hazel MD, FACC 08:49 AM Heparin 300 units Intravenous Rivka Melendrez RN 08:53 AM Aggrastat 12.5mg/250ml 19.5 ml Intravenous Rivka Melendrez RN 08:53 AM Aggrastat Bolus: 54 ml Intravenous Rivka Melendrez RN 09:08 AM Fentanyl 25 mcg Intravenous Rivka Melendrez RN 09:24 AM Heparin 2000 units Intravenous Rivka Melendrez RN 09:52 AM Brilinta 180 mg Orally Rivka Melendrez RN 08:29 AM Versed 1 mg Intravenous Rivka Melendrez RN ASA Classification: CLASS II- Mild systemic disease (i.e. well-controlled diabetes, hypertension, asthma, cigarette smoking) Sinai Score Preprocedure Postprocedure Activity 2- Moves 4 extremities sustained head lift Activity 2- Moves 4 extremities sustained head lift Circulation 2- SBP +/= 20 points of pre-anesthetic level Circulation 2- SBP +/= 20 points of pre-anesthetic level Consciousness 2- Awake and alert oriented x 3 Consciousness 2- Awake and alert oriented x 3 O2 Saturation 2- Able to maintain O2 satruation of 92% on room air O2 Saturation 2- Able to maintain O2 satruation of 92% on room air Respiratory 2- Able to deep breathe and cough well Respiratory 2- Able to deep breathe and cough well Total Score 10 Total Score 10 Contrast Agent: Isovue Diagnostic Contrast: 196 ml Total Contrast: 196 ml Fluoro Dose: 2117 mGy Activated Clotting Time Time Seconds to Clot 08:48 AM 153 09:24 AM 221 09:56 AM 225 Procedure Log Time Note Enter By 08:17 AM Pt arrived to [facility] [employer] 2 at 08:17 tsites 08:18 AM Lorena Smith (R) Position: Monitor Time in: 08:18 tsites 08:18 AM Edel Hernandez Position: Scrub Time in: 08:18 tsites 08:18 AM Rivka Melendrez RN Position: Huller Operator Time in: 08:18 tsites 08:18 AM Patient charges- Angio tray pack, Navilyst 3mm J, Pulse Oximetry and ACIST tubing and transducer tsites 08:18 AM Case Delayed No tsites 08:19 AM Physician arrived 08:19 tsites 08:19 AM Meet and greet completed tsites 08:19 AM Sign in performed according to hospital policy. tsites 08:19 AM Procedure start 08:19 tsites 08:20 AM Vitals capture started with the following parameters, Patient=Adult, Interval=5 min, Initial Mbcinzta=794 mmHg, Deflation Rate=5 mmHg, Cuff placed on Left Arm 08:20 AM Time: 08:20 Oxygen on at 2 L/min per nasal cannula by Rivka Melendrez RN tsites 08:21 AM Time: 08:21 Fentanyl 50 mcg Intravenous Given by Rivka Melendrez RN tsites 08:21 AM HR=79 bpm, KHOI=336/94 mmhg, SpO2=98 % 08:21 AM Time: 08:21 Versed 2 mg Intravenous Given by Rivka Melendrez RN tsites 08:24 AM CathStat 08:24 AM Recorded ECG: HR=84 Condition=Condition 1 08:25 AM Hair removed from procedure site in holding area using clippers. Right wrist and right groin prepped with Chloraprep by Lorena Smith (R), safety strap applied then patient was draped. Skin intact. tsites 08:26 AM HR=69 bpm, DGXE=823/98 mmhg, SpO2=98.0 %, Resp=13 B/min 08: AM Time: 08: Patient comfortable and pain free: Yes tsites 08:28 AM Time: 08:28LOC: 4 = Oriented but drowsy tsites 08:28 AM Clinical Presentation: Unstable angina tsites 08:28 AM Pressure channel 1 zeroed. 08:29 AM Time: 08: Versed 1 mg Intravenous Given by Rivka Melendrez RN tsites 08:29 AM Time out performed according to hospital policy tsites 08:30 AM Time: 08: 0.5 ml Lidocaine 2% to right radial Subcutaneous Given by Vipin Hazel MD, [facility] tsites 08:31 AM Access obtained by percutaneous puncture. 5Fr 10cm Terumo Glidesheath sheath placed in right Radial artery. [id number] tsites 08:31 AM HR=67 bpm, MPBB=737/88 mmhg, SpO2=98 %, Resp=15 B/min 08: AM Time: 08: Patient given 200 mcg Nitroglycerin, and 2.5 mg Verapamil Intraarterial by Vipin Hazel MD, [facility] tsites 08:32 AM 5Fr TIG catheter inserted over the wire [facility] tsites 08:32 AM 0.035 260cm Navilyst 3mmJ wire [id number] tsites 08:34 AM 0.035 145cm VSI Blane-Torque wire [id number] tsites 08:34 AM unable to advance wire tsites 08:34 AM Catheter removed tsites 08:34 AM Wire removed tsites 08:35 AM Time: 08:34 10 ml Lidocaine 2% to right groin Subcutaneous Given by Vipin Hazel MD, [facility] tsites 08:36 AM HR=66 bpm, UJZD=928/77 mmhg, SpO2=96 %, Resp=17 B/min 08:37 AM Access obtained by percutaneous puncture. 5Fr 10cm Terumo [place] sheath placed in right Femoral artery. [id number] tsites 08:37 AM 5Fr FL 4 catheter inserted over the wire [facility] tsites 08:37 AM 0.035 145cm Navilyst 3mmJ wire [id number] tsites 08:37 AM Wire removed tsites 08:38 AM LCA angiography performed in multiple views. tsites 08:38 AM Recorded Pressure: Ao, HR=68, Condition=Condition 1 (Aorta) Ao 96/74/85 08:39 AM wire reinserted catheter removed tsites 08:39 AM Lesion found in Proximal LAD. Pre Stenosis: 80 Pre JEFF Flow: tsites 08:40 AM Lesion found in Mid LAD. Pre Stenosis: 80 Pre JEFF Flow: tsites 08:40 AM Proximal Left Anterior Descending Coronary Artery with 80% stenosis. If graft is supplying this territory, 0 % stenosis. tsites 08:40 AM Mid/Distal Left Anterior Descending Coronary Artery and diagonal branches with 80% stenosis. If graft is supplying this area, 0 % stenosis tsites 08:40 AM Lesion found in Proximal Circumflex. Pre Stenosis: 40 Pre JEFF Flow: tsites 08:41 AM 5Fr FR 4 catheter inserted over the wire [facility] tsites 08:41 AM RCA angiography performed in multiple views. tsites 08:41 AM HR=67 bpm, RUPN=809/81 mmhg, SpO2=96 %, Resp=13 B/min 08:41 AM Recorded Pressure: Ao, HR=67, Condition=Condition 1 (Aorta) Ao 87/56/71 08:42 AM Lesion found in Distal RCA. Pre Stenosis: 99 Pre JEFF Flow: 2: Partial Flow/Perfusion (> 1 but < 3) tsites 08:42 AM Right Coronary, Right Posterior Descending Arteries with Right Posterolateral and Acute Marginal branches with 99 % stenosis. If graft is supplying this area, 0 % stenosis tsites 08:42 AM 5Fr Pigtail catheter inserted over the wire [facility] tsites 08:42 AM Catheter selectively placed in left ventricle tsites 08:43 AM Pressure channel 1 zeroed. 08:43 AM Recorded Pressure: LV, HR=68, Condition=Condition 1 (Left Ventricle) LV 106/2/5 08:43 AM Bolus angiogram of left Ventricle complete: 10 ml/sec for a total of 30 mls tsites 08:43 AM Recorded Pressure: LV, Ao, HR=76, Condition=Condition 1 (Left Ventricle) LV 94/13/-2, (Aorta) Ao 90/48/66 08:44 AM PCI Status Urgent tsites 08:44 AM PCI Indication: PCI for high risk Non-STEMI or unstable angina tsites 08:44 AM PCI lesion in Distal RCA. tsites 08:44 AM Sheath exchanged for a 6 Fr 11 cm Cordis Henny sheath [id number] tsites 08:45 AM Inflation device was opened. tsites 08:46 AM 6Fr JR 4 Runway guide catheter was used to cannulate the PCI vessel successfully. reused? No tsites 08:46 AM HR=65 bpm, YHEK=569/78 mmhg, SpO2=96.0 %, Resp=14 B/min 08:48 AM At 08:48 the ACT was 153 seconds. tsites 08:49 AM Time: 08:49 Heparin 300 units Intravenous Given by Rivka Melendrez RN tsites 08:50 AM .014 PT Graphix 182cm guide wire across target lesion- successful. reused? No tsites 08:50 AM 2.5 mm x 12 mm Emerge Monorail balloon across target lesion- successful. reused? No tsites 08:51 AM Balloon inflated @ 14 yessenia for 11 seconds tsites 08:51 AM HR=69 bpm, KEJN=638/75 mmhg, SpO2=97.0 %, Resp=15 B/min 08:52 AM 3.5mm x 12mm Synergy drug-eluting stent across target lesion- successful Lot #[id number] tsites 08:53 AM Time: 08:53 Aggrastat 12.5mg/250ml 19.5 ml Intravenous Given by Rivka Melendrez RN Mccarthy pump tsites 08:54 AM Time: 08:53 Aggrastat Bolus: 54 ml Intravenous Given by Rivka Melendrez RN Mccarthy pump tsites 08:54 AM Stent deployed @ 16 yessenia for 21 seconds tsites 08:54 AM Recorded Pressure: Ao, HR=68, Condition=Condition 1 (Aorta) Ao 81/50/67 08:54 AM Stent delivery system removed intact. tsites 08:55 AM 3.75 mm x 12mm NC Emerge balloon across target lesion- successful. reused? No tsites 08:56 AM HR=67 bpm, KSDY=054/82 mmhg, SpO2=96.0 %, Resp=16 B/min 08:56 AM Balloon inflated @ 20 yessenia for 16 seconds tsites 08:58 AM Guide catheter removed intact. tsites 08:58 AM Guide wire removed intact. tsites 08:59 AM 6Fr EBU 3.5 medtronic guide catheter was used to cannulate the PCI vessel successfully. reused? No tsites 08:59 AM Pt Graphix reinserted tsites 09:01 AM HR=65 bpm, SCZZ=566/77 mmhg, SpO2=96 %, Resp=15 B/min 09:03 AM Recorded Pressure: Ao, HR=60, Condition=Condition 1 (Aorta) Ao 87/45/64 09:06 AM HR=67 bpm, PWJY=040/83 mmhg, SpO2=97 %, Resp=14 B/min 09:06 AM 3.5 mm x 30 mm Emerge Monorail balloon across target lesion- successful. reused? No tsites 09:08 AM Time: 09:08 Fentanyl 25 mcg Intravenous Given by Rivka Melendrez RN tsites 09:08 AM Balloon inflated @ 10 yessenia for 13 seconds tsites 09:09 AM Balloon inflated @ 10 yessenia for 13 seconds tsites 09:11 AM HR=59 bpm, KBNX=495/86 mmhg, SpO2=97.0 %, Resp=10 B/min 09:12 AM 3.0mm x 38mm Synergy drug-eluting stent across target lesion- successful Lot #[id number] tsites 09:12 AM Stent deployed @ 12 yessenia for 10 seconds tsites 09:12 AM Recorded Pressure: Ao, HR=66, Condition=Condition 1 (Aorta) Ao 89/57/73 09:15 AM 3.0mm x 20mm Synergy drug-eluting stent across target lesion- successful Lot #[id number] tsites 09:16 AM HR=58 bpm, YORR=171/87 mmhg, SpO2=96.0 %, Resp=16 B/min 09:17 AM Stent deployed @ 16 yessenia for 10 seconds tsites 09:17 AM Stent balloon reinflated @ 16 yessenia for 10 seconds tsites 09:17 AM Stent delivery system removed intact. tsites 09:21 AM HR=69 bpm, LGIC=076/74 mmhg, SpO2=96 %, Resp=14 B/min 09:24 AM At 09:24 the ACT was 221 seconds. tsites 09:24 AM Time: 09:24 Heparin 2000 units Intravenous Given by Rivka Melendrez RN tsites 09:26 AM 3.6Fr/40mHz MePlease Cross IVUS catheter was inserted into guide catheter and advanced to lesion. IVUS study was done and the catheter was removed. tsites 09:26 AM HR=60 bpm, EKGT=001/89 mmhg, SpO2=96 %, Resp=12 B/min 09:31 AM Recorded Pressure: Ao, HR=59, Condition=Condition 1 (Aorta) Ao 117/64/86 09:31 AM HR=61 bpm, OHWK=565/84 mmhg, SpO2=97.0 %, Resp=22 B/min 09:[address] changes noted tsites 09:33 AM IVUS catheter removed intact tsites 09:33 AM 3.25 mm x 15mm NC Emerge balloon across target lesion- successful. reused? No tsites 09:34 AM Balloon inflated @ 14 yessenia for 4 seconds tsites 09:34 AM Balloon inflated @ 14 yessenia for 15 seconds tsites 09:35 AM Balloon inflated @ 20 yessenia for 10 seconds tsites 09:35 AM Balloon inflated @ 20 yessenia for 7 seconds tsites 09:36 AM Balloon inflated @ 20 yessenia for 6 seconds tsites 09:36 AM Recorded Pressure: Ao, HR=57, Condition=Condition 1 (Aorta) Ao 108/68/87 09:36 AM Balloon catheter removed intact. tsites 09:37 AM 3.5 mm x 20mm NC Emerge balloon across target lesion- successful. reused? No tsites 09:37 AM HR=54 bpm, ZSPI=224/90 mmhg, SpO2=97.0 %, Resp=22 B/min 09:38 AM Time: 09:23LOC: 5 = Fully awake and oriented or at pre-proc level tsites 09:38 AM Time: 09:23 Patient comfortable and pain free: Yes tsites 09:39 AM Balloon inflated @ 14 yessenia for 14 seconds tsites 09:39 AM Balloon inflated @ 12 yessenia for 3 seconds tsites 09:40 AM Balloon inflated @ 20 yessenia for 12 seconds tsites 09:41 AM HR=57 bpm, BYXU=454/86 mmhg, SpO2=97 %, Resp=14 B/min 09:42 AM Balloon catheter removed intact. tsites 09:42 AM 3.75x12 NC Emerge reinserted tsites 09:44 AM Balloon inflated @ 12 yessenia for 5 seconds tsites 09:45 AM Balloon inflated @ 16 yessenia for 12 seconds tsites 09:45 AM Balloon inflated @ 20 yessenia for 12 seconds tsites 09:46 AM Balloon inflated @ 20 yessenia for 10 seconds tsites 09:46 AM HR=55 bpm, MQEX=793/83 mmhg, SpO2=97 %, Resp=14 B/min 09:46 AM Balloon catheter removed intact. tsites 09:47 AM Guide wire removed intact. tsites 09:47 AM Guide catheter removed intact. tsites 09:48 AM JR4 guide reinserted tsites 09:49 AM RCA angiography performed in multiple views. tsites 09:50 AM Catheter removed tsites 09:50 AM Wire removed tsites 09:50 AM Bolus angiogram of right Femoral complete: 2 ml/sec for a total of 4 mls tsites 09:51 AM Procedure completed at 09:51 tsites 09:51 AM HR=61 bpm, EILI=217/82 mmhg, SpO2=99.0 %, Resp=8 B/min 09:51 AM Sign out completed: Radiation Dose 2117 mGy Fluoro Time: 17.2 Isovue 370 - 200ml contrast 196 ml given by Vipin Hazel MD, [facility]. Complications: NoneCardiac Rehab Consult needed: YesConfirmed administered medications: Yes tsites 09:51 AM Isovue 370 - 200ml,1 Bottle(s) used. tsites 09:51 AM Isovue 370 - 500ml,1 Bottle(s) used. tsites 09:52 AM Arterial sheath pulled, Vasc Band closure device used and was Successful S/N. tsites 09:52 AM 11 ml air in Vasc Band. tsites 09:52 AM Post ECG NSR tsites 09:52 AM Post Blood Pressure 2133/82 tsites 09:52 AM Time: 09:52 Brilinta 180 mg Orally Given by Rivka Melendrez RN tsites 09:56 AM HR=62 bpm, UDOH=992/92 mmhg, SpO2=99 %, Resp=16 B/min 09:56 AM At 09:56 the ACT was 225 seconds. tsites 09:58 AM 09:58 Post Pulses Rt Radial 2+ tsites 09:58 AM 09:58 Post Pulses Bilateral DP \\T\\ PT 2+ tsites 09:58 AM Information taught Cardiac Cath, PCI, IVUS/Flowire, and Vasc Band tsites 09:59 AM Education needs Procedure, Plan of Care, and Responsibilities of Patient in Care tsites 09:59 AM Learning barriers :None tsites 09:59 AM Education Methods Verbal tsites 09:59 AM Education evaluation Able to repeat information tsites 10:00 AM Site status No bleeding/hematoma - Rt Groin as reported by Edel Hernandez RT at 10:00 tsites 10:00 AM Site status No bleeding/hematoma - Rt Wrist as reported by Edel Hernandez RT at 10:00 tsites 10:00 AM Opsite applied tsites 10:03 AM Report given to mikey KING Pt taken to 2N Room #1. 10:03 tsites 10:03 AM Plavix, Effient or Brilinta given Yes tsites 10:03 AM Delay to floor No tsites 10:03 AM Patient out of room: 10:03 tsites 10:04 AM Family placed in consult room. tsites 10:04 AM Complications: None tsites Complications Complication None None Hemodynamics Pressures Site Systolic/A Wave Diastolic/V Wave Mean AO 96 74 85 AO 87 56 71 LV 106 2 5 LV 94 13 -2 AO 90 48 66 AO 81 50 67 AO 87 45 64 AO 89 57 73 AO 117 64 86 AO 108 68 87 Post Procedure Information Blood Pressure: 133/82 mmHg Rhythm: NSR Post procedural instructions were given Closure Device Time Device Success/Fail 11/01/2016 10:04:00 AM Manual Compression Mechanical Compression Site Checks Time Location Status Staff Sheath In? Note 10:00 AM Rt Groin No bleeding/hematoma Edel Hernandez RT 10:00 AM Rt Wrist No bleeding/hematoma Edel Hernandez RT Pulses Time Site Pre-Procedure Post-Procedure Note Bilateral DP \\T\\ PT 2+ Bilateral radial 2+ 9:58:00 AM Rt Radial 2+ 9:58:00 AM Bilateral DP \\T\\ PT 2+ Updated by Lorena Smith RT (R) on 11/01/2016 10:09:43 AM Lorena Smith RT electronically signed on 11/01/2016 10:10:11 AM with status of Final
--- NOTE | 2016-11-01 10:39 | Event Note ---
Date of Encounter: 11/01/16 Time of Encounter: 10:40 - Cardiology Event Note Culprit for MS - 99% mid RCA with JEFF 2 flow s/p PCI MIKY x 1. Long prox-mid LAD 80-90% stenosis MIKY x 2 with IVUS evalation for postdilatation. Preserved EF. Brilinta loaded. Transient inferior ST elevation after RCA PCI completed, relook at the RCA showed patent artery with JEFF 3 flow.
--- NOTE | 2016-11-01 11:07 | Event Note ---
Date of Encounter: 11/01/16 Time of Encounter: 08:00 - Cardiology Event Note Laboratory Tests 11/01/16 04:01 Creatinine 1.01 Est GFR (Non-Af Amer) > 60 Kidney function improved. Patient scheduled today for LHC with . Patient seen with family at bedside. All questions regarding LHC answered and emotional support provided. Further recommendations following LHC. Patient and family state understanding and agree with plan.
[2016-11-01] MEDS ORDERED: Ondansetron 4 MG/2 ML VIAL IVP PRN (11:25)
[2016-11-01] MEDS ORDERED: *HR* Atropine Sulfate 1 MG/ML VIAL ONE (12:39)
--- NOTE | 2016-11-01 14:53 | Internal Med Progress Note ---
Date of Encounter: 11/01/16 Time of Encounter: 14:51 - Assessment and plan (1) NSTEMI (non-ST elevated myocardial infarction) Current Visit: Yes Status: Acute Assessment and plan: Cardiology f/up appreciated. Underwent LHC and received 2 MIKY to RCA and LAD. Continue ASA and beta-lavern; started on Brilinta. Lipid panel WNL but probably will benefit from statin, however had adverse reaction in the past; will d/w Cardiology. Continue telemetry monitoring. (2) ELLA (acute kidney injury) Current Visit: Yes Status: Resolved (3) Essential hypertension Current Visit: Yes Status: Chronic Assessment and plan: Blood pressure fairly controlled. Continue home medications. Start low dose Lisinopril. (4) Hyperlipidemia Current Visit: Yes Status: Chronic Qualifiers: Hyperlipidemia type: mixed hyperlipidemia Qualified Code(s): E78.2 - Mixed hyperlipidemia - Subjective Interval history: Feels better. Underwent heart cath today and received 2 stents; had some nausea after procedure, currently received. No chest pain, groin pain, dyspnea. - Constitutional Vitals: Temp Pulse Resp BP Pulse Ox 97.7 F 63 18 143/93 98 11/01/16 10:25 11/01/16 13:10 11/01/16 13:05 11/01/16 13:10 11/01/16 13:05 General appearance: Present: A&O X 3, answers questions appropriately - Respiratory Respiratory exam: Present: CTAB. Absent: accessory muscle use, rales, rhonchi, wheezes - Cardiovascular Cardiovascular exam: Present: RRR, +S1, +S2. Absent: diastolic murmur, gallop, rubs, systolic murmur - GI/Abdominal GI/Abdominal exam: Present: normal bowel sounds, soft, no peritoneal signs. Absent: distended, tenderness Internal Medicine: Result - Labs CBC & Chem 7: 11/01/16 04:01 11/01/16 04:01 Labs: Short CBC 11/01/16 Range/Units 04:01 WBC 6.6 (4.3-11.1) K/mcL Hgb 14.1 (12.9-16.9) g/dL Hct 41.8 (37.5-50.1) % Plt Count 220 (140-400) K/mcL Neutrophils # 4.7 (1.6-8.9) K/mcL BMP 11/01/16 04:01 Sodium 141 Potassium 4.1 Chloride 111 H Carbon Dioxide 22 BUN 12 Creatinine 1.01 Glucose 110 H Calcium 8.2 L - ABG Interpretation ABG results: PT/INR, D-dimer PT 12.0 Seconds (9.4-12.1) 10/31/16 05:35 D-Dimer 327 ng/mLFEU (0-500) 10/31/16 09:54 Consult Discharge Plan - Plan Referrals: Darcy Garcia MD [Primary Care Provider] -
[2016-11-01] MEDS: *HR* Ticagrelor 90 MG TABLET PO SCH (19:50)
--- NOTE | 2016-11-02 07:02 | Electrocardiograph Report ---
[place] [address] Test Date: 2016-10-30 Pat Name: James Breaux Department: 104 Room: 2N01 Gender: M Note Teller: : 1940 Requested By: Alex Mckee Order Number: [id number] Reading MD: Vipin Hazel MD Measurements Intervals [place] Rate: 67 P: 80 ND: 210 QRS: 1 QRSD: 91 T: 75 QT: 370 QTc: 385 Interpretive Statements SINUS RHYTHM WITH FIRST DEGREE AV BLOCK Electronically Signed On 11-02-2016 7:00:44 EST by Vipin Hazel MD
[2016-11-02] MEDS: *HR* Ticagrelor 90 MG TABLET PO SCH (07:34)
--- NOTE | 2016-11-02 07:34 | Electrocardiograph Report ---
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
[2016-11-02] MEDS: Aspirin Enteric Coated 81 MG Tablet PO SCH (07:36)
--- NOTE | 2016-11-02 10:05 | Cardiology Progress Note ---
Date of Encounter: 11/02/16 Time of Encounter: 09:30 Assessment and Plan (1) NSTEMI (non-ST elevated myocardial infarction) Current Visit: Yes Status: Acute Per cardiology: -Peak Troponin 0.40 -Echocardiogram with LVED 55-60%, no pulmonary hypertension, mild left ventricular diastolic dysfunction, no significant valvular dysfunction, all wall segments with normal motion. -11/01/16 [facility] with 1 MIKY to RCA and 2 MIKY to LAD. Official cath report pending. -Patient reports intolerance to atorvastatin. Agreeable to attempting statin again-- will add Crestor (potential adverse interaction with simvastatin). -On asa, brilinta, beta lavern, will add back statin. Patient and family concerned regarding gabriel-- we'll discontinue Gabriel increase beta lavern (EF preserved in patient with no history diabetes, had acute kidney injury upon arrival) -Patient and family educated on dual antiplatelet therapy for at least one year without interruption. Patient and family state understanding. -Nitro sublingual education given and then provide at discharge. -Access site education given to pateint and family. -Encouraged patient to keep HR and BP log and will bring to appointment in cardiology office. -Will start crestor. -Will order nitro sublingual for patient to be discharged home with. -Will stop gabriel and will increase beta lavern. -Cardiololgy will set up follow up appointment and will follow with pateint as outpatient. -Cardiology will sign off. (DAILY) (2) Chest pain Current Visit: No Status: Acute Per cardiology: -CUrrently chest pain free. -No chest pain since cath. (DAILY) Qualifiers: Chest pain type: other chest pain Qualified Code(s): R07.89 - Other chest pain; R07.8 - Other chest pain (3) Essential hypertension Current Visit: Yes Status: Chronic Per cardiology: -Patient with known history of hypertension. -Currently on beta lavern. -BP 120-150s sytolic and 70-90 diastolic, -Home medications resumed per primary service. -Gabriel ordered per primary service. -WIll discontinue gabriel and will increase beta lavern. -Will continue to monitor. (DAILY) (4) Hyperlipidemia Current Visit: Yes Status: Chronic Per cardiology: -Patient states known history of "borderline" hyperlipidemia. -Patient failed outpatient treatment with atorvastatin due to myalgias. -Simvastatin ordered per primary service, but has since been discontinued. -Triglycerides 84, Cholesterol 138, LDL 81, HDL 39. -Will re-start crestor. -Will continue to monitor. (DAILY) Qualifiers: Hyperlipidemia type: mixed hyperlipidemia Qualified Code(s): E78.2 - Mixed hyperlipidemia (5) ELLA (acute kidney injury) Current Visit: Yes Status: Resolved Per Cardiology: -Mild ELLA. Creatinine noted to be 1.3 on admit -Baseline 1.0-1.1. -Stable status post cath, will continue to monitor. (DAILY) Discussion w patient/family: The assessment and plan as outlined above was discussed with the patient and/or family members who expressed understanding and agreement. All questions were answered. Thank you for involving us in the care of your patient. Please call with any questions. Patient was seen and examined with ENID Matute. Discussed and reviewed with . Subjective Principal diagnosis: chest pain Interval history: is a 76 year old male who presented to the ER with one episode of mid sternal chest pain. Patient was admitted from ER with elevated troponin. Patient noted to also have mild ELLA with creatinine1.3. Pateint hydrated Wednesday and on Wednesday was taken to crime lab analyst with 1 MIKY to RCA and 2 MIKY to LAD. Patient denies chest pain since cath. (DAILY) Objective Vital Signs, Last 4 Hours Temp Pulse Resp BP Pulse Ox 11/02/16 07:30 78 95 11/02/16 06:30 98.2 F 81 16 152/87 General: Conversant, No Apparent Distress HEENT: Atraumatic, Normocephaly, Mucus Membranes Moist Neck: No JVD, Normal carotid pulses Cardiac: Reg Rate and Rhythm, Normal S1 and S2, No Murmur Lungs: Normal Breath Sounds, No Wheeze, Rales, Rhonchi Neuro: Alert and responsive, No focal deficits noted Abdomen: Soft, Non-Tender Skin: No rashes noted on visualized skin Musculoskeletal: No Chest Wall Tenderness Extremities: No Clubbing, No Cyanosis, No Edema, Normal Pulses, Other (Right groin access with mild ecchymosis, no hematoma or redness. Right radial access without ecchymosis, hematome, or redness. ) Results 11/01/16 04:01 11/01/16 04:01 - Imaging and Cardiology Chest Xray: report reviewed Echo: report reviewed Cardiac cath: report reviewed, other (Dr.Hazel's event note reviewed. No official report at this time.) - EKG Interpretation EKG results cardiology: personally reviewed (ECG with sinus rhythm with ST changes in V2-V6, prior to cath.), other (Telemtry reviewed with armani heart rate 73, occasional PVCs, occasional PACs.) Consult Discharge Plan - Plan Referrals: Sandy Bernal CNP [Advanced Practice Nurse] - 11/06/16 9:30 am Marin Nichols CNP [Advanced Practice Nurse] - (this office makes there own appointments and will call the patient at home) Darcy Garcia MD [Primary Care Provider] -
[2016-11-02] MEDS ORDERED: Nitroglycerin 0.4 MG TAB.SUBL SL PRN (10:14)
[2016-11-02 11:13] VITALS: BP 145/92
--- NOTE | 2016-11-02 13:09 | Discharge Summary ---
Date of Encounter: 11/02/16 Time of Encounter: 13:05 - Discharge Diagnosis (1) NSTEMI (non-ST elevated myocardial infarction) Priority: Primary Status: Acute (2) ELLA (acute kidney injury) Priority: Primary Status: Resolved (3) Essential hypertension Priority: Secondary Status: Chronic (4) Hyperlipidemia Priority: Secondary Status: Chronic Qualifiers: Hyperlipidemia type: mixed hyperlipidemia Qualified Code(s): E78.2 - Mixed hyperlipidemia - Discharge Medications Prescriptions: Nitroglycerin 0.4 mg SL Q5MIN PRN #30 tab.subl PRN Reason: Chest Pain Rosuvastatin [Crestor] 40 mg PO HS #30 tablet Ticagrelor [Brilinta] 90 mg PO BID #60 tablet Home Medications: Aspirin Enteric Coated [Aspirin EC] 81 mg PO DAILY 10/30/16 [History] Juice Plus 1 cap PO DAILY 10/30/16 [History] Vit C/Vit E/Lutein/Min/[place]-3 [Ocuvite Softgel] 1 each PO DAILY 10/30/16 [ History] Metoprolol [Lopressor] 50 mg PO BID #0 11/02/16 [Rx] Nitroglycerin 0.4 mg SL Q5MIN PRN #30 tab.subl 11/02/16 [Rx] Rosuvastatin [Crestor] 40 mg PO HS #30 tablet 11/02/16 [Rx] Ticagrelor [Brilinta] 90 mg PO BID #60 tablet 11/02/16 [Rx] Allergies/Adverse Reactions: Allergies No Known Allergies Allergy (Verified 05/12/16 15:28) Procedures/tests Complete & Pending: Procedures Performed prior 72 hours Category Date Time Status ECG 12 lead ECG [ECG] Routine Y 11/01/16 05:05 Completed ECG 12 lead ECG [ECG] Routine Y 11/01/16 10:06 Completed Date of admission: 10/31/16 17:23 Primary care physician: Darcy Garcia, Consults: 11/01/16 10:06 Consult to Cardiac Rehabilitation-Phase1 [CONS] Routine Comment: Reason for Consult: post op cath Call Completed: Yes Discharging clinician: Sunshine Castillo Anticipated date of discharge: 11/02/16 - Patient Status Disposition: Home, Self-Care Condition: Good Functional capacity at discharge: independent ambulation Overall status at discharge: patient is progressing back to baseline - Discharge Instructions Instructions: Rosuvastatin (By mouth), Ticagrelor (By mouth), Myocardial Infarction (GEN), Coronary Intravascular Stent Placement (DC) Follow Up With: Sandy Beranl CNP [Advanced Practice Nurse] - 11/06/16 9:30 am Darcy Garcia MD [Primary Care Provider] - Joe Aguilar DO [Partnered Physician] - 11/10/16 12:15 pm - Diet and Activity Activity: resume usual activities as tolerated Diet: low fat, low cholesterol, low salt diet Hospital course: Mr. Breaux is a 76 year old male admitted with retrosternal chest pain and noted to have elevated Troponin in the ER. He was started on treatment for NSTEMI with IV Heparin, ASA, Plavix and statin. Telemetry was continued showing no acute abnormality. Cardiology was consulted and patient underwent LHC and received two MIKY to RCA and LAD. Echocardiogram was done showing preserved EF, mild LV diastolic dysfunction. He did well after catheterization and is currently medically stable for discharge with outpatient Cardiology f/up. His BP was noted to be slightly higher than goal and Metoprolol is increased and he is recommended to continue ASA and Brilinta for 1 year, along with statin. - Time Spent with Patient Total time spent providing and/or coordinating discharge services: Greater than 30 minutes (45 min) - Constitutional Vitals: Temp Pulse Resp BP Pulse Ox 97.7 F 80 16 145/92 96 11/02/16 11:00 11/02/16 12:00 11/02/16 11:00 11/02/16 11:00 11/02/16 11:00 General appearance: Present: A&O X 3, answers questions appropriately - Respiratory Respiratory exam: Present: CTAB. Absent: accessory muscle use, rales, rhonchi, wheezes - Cardiovascular Cardiovascular exam: Present: RRR, +S1, +S2. Absent: diastolic murmur, gallop, rubs, systolic murmur
--- NOTE | 2016-11-02 16:45 | Electrocardiograph Report ---
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
--- NOTE | 2016-11-02 16:58 | Electrocardiograph Report ---
[address] [place], [place] [address] Test Date: 2016-11-01 Pat Name: James Breaux Department: 110 Room: 2N01 Gender: M Equipment Manager: : 1940 Requested By: Preston Garces Order Number: [id number] Reading MD: Alex Acosta Measurements Intervals [place] Rate: 67 P: 22 [place]: 200 QRS: -36 QRSD: 93 T: -31 QT: 399 QTc: 414 Interpretive Statements SINUS RHYTHM MARKED LEFT AXIS DEVIATION PROBABLE INFERIOR MYOCARDIAL INFARCTION, AGE UNDETERMINED Electronically Signed On 11-02-2016 16:56:20 EST by Alex Acosta
--- NOTE | 2016-11-04 09:37 | Invasive Diagnostic Lab ---
Name: James Breaux Date of Study: 11/01/2016 Date: 1940 Ht: 185.4 cm /73.0 in Medical Record#: [id number] Age: 76 Wt: 107.7 kg / 237.44 lb Account/Order#: [id number] Gender: Male BSA: 2.31 Order #: [id number] Fluoro Dose: 2117 mGy BMI: 31.33 Procedure Physician: Vipin Hazel MD, [facility] Referring MD: Referring MD: Procedures Performed: LEFT HEART CATH PCI of acute VT - RCA Stent w/ PTCA Single Major Vessel - LAD (Additional major vessel) IVUS CORONARY INITIAL VESSEL Indications: Non-Stemi with ongoing chest pain and elevated troponin with finding of subtotally occluded vessel Impressions: There is severe two vessel coronary artery disease. The left ventricle is normal and has normal contractility EF 60% Patient had successful PTCA/Drug-Eluting Stent placement in the mid RCA. Patient had successful PTCA/Drug-Eluting Stent placement in the proximal mid LAD followed by IVUS guidance for postdilatation Recommendations: Optimal medical therapy of patient's disease. Aggressive risk factor modification. Patient being referred for cardiac rehab. History/Risk Factors: Hypertension Dyslipidemia Procedure Access obtained in the right Femoral artery by percutaneous puncture A intravascular ultrasound catheter was fully inserted through the sheath into the distal part of the vessel. Image recording was initiated and coronary ultrasound images were acquired during slow pullback. Patient had successful PTCA/Drug-Eluting Stent placement in the distal RCA.Patient had successful PTCA/Drug-Eluting Stent placement in the mid LAD. Complications: None, None Contrast: Isovue 196ml Closure Device: Manual Compression, Mechanical Compression Hemodynamics: Pressures Site Systolic/ A Wave Diastolic/ V Wave End Diastolic/ Mean HR AO 96 74 85 68 AO 87 56 71 67 LV 106 2 5 68 LV 94 13 -2 77 AO 90 48 66 69 AO 81 50 67 68 AO 87 45 64 60 AO 89 57 73 66 AO 117 64 86 59 AO 108 68 87 57 LV Ventriculography Ejection Method: LV Gram Ejection Fraction: 55-60% Wall Motion: FOSTER Anterobasal Normal Anterolateral Normal Apical: Normal Inferoapical Normal Inferobasal Mild Hypokinesis Coronary Dominance: Lesion Findings/Interventions * Left Main Coronary Artery The LMCA is angiographically free of disease. * Left Anterior Descending There is a long 80% stenosis in the Proximal LAD. The lesion has a JEFF flow of 2 and has no thrombus present. There is a 58 mm long, 80% stenosis in the Mid LAD. The lesion has a JEFF flow of 2 and has no thrombus present. An intervention was performed on the Mid LAD with a final stenosis of 0%. There were no lesion complications. The final JEFF flow was 3. IVus guidance for postdilatation sizing * Circumflex There is a 40% stenosis in the Proximal Circumflex. * Right Coronary Artery There is a 12 mm long, 99% stenosis in the Distal RCA. The lesion has a JEFF flow of 2 and has thrombus present. An intervention was performed on the Distal RCA with a final stenosis of 0%. There were no lesion complications. The final JEFF flow was 3. Culprit vessel for acute VT. Interventional Device(s) Vessel Segment Type Name Diameter (mm) Length (mm) Mid LAD Balloon Emerge Monorail 3.5 30 Mid LAD Drug Eluting Stent Synergy 3 38 Mid LAD Drug Eluting Stent Synergy 3 20 Mid LAD Balloon NC Emerge 3.25 15 Mid LAD Balloon NC Emerge 3.75 12 Distal RCA Balloon Emerge Monorail 2.5 12 Distal RCA Drug Eluting Stent Synergy 3.5 12 Distal RCA Balloon NC Emerge 3.75 12 Updated by Lorena Smith RT (R) on 11/01/2016 10:07:31 AM Vipin Hazel MD, FACC electronically signed on 11/04/2016 9:30:44 AM with status of Final
== END 2016-11-02 13:40 | disposition home or self-care (01) | DRG 247 ==
LOC: EMEROO 15:43 → 2NENU 15:43 → 2NNU 11-01 11:08
PROVIDERS: ADMIT Internal Medicine; ATTEND Internal Medicine

== ENCOUNTER 2017-01-13 18:41 | Observation (INO) ==
[2017-01-13] MEDS ORDERED: Aspirin 81 MG TAB.CHEW PO ONE (18:50)
--- NOTE | 2017-01-13 18:55 | Emergency Department Note ---
START Narrative - START START: Mr. Breaux, a 76-year-old male, presents from home via EMS with chief complaint of chest pain. Onset abruptly at approximately 18:05 and continued to this time. Described as a squeezing sensation in the hypogastrium/substernal region. Associated with chills He denies need for analgesia at this time. Denies nausea, vomiting, radiation of pain, change in dyspnea, diaphoresis. Patient notes that over the past 4 weeks he has had dyspnea and increased fatigue. Patient had OH in October of this year with 3 stents. The pain feels different. Patient has history of GERD but this pain feels different. PMH: Hypertension, CAD status post PCI with 3 stents. No history hyperlipidemia however is on Crestor for risk management. Early on dual antiplatelet therapy of aspirin 81 mg and brilenta. Patient has never smoked. Cardiac family history is unremarkable. Vital signs stable. Patient's chest pain is not reproducible to palpation. Chest pain workup started. Patient signed out to the night team. <Taurus Reese - Last Filed: 01/13/17 18:50> - START START: I examined this patient and my medical decision-making was reviewed with the ONCOLOGY ADMIN/PA/Advanced Practice Nurse/Resident Physician. I agree with the documented findings, disposition and treatment plan as described except to the extent set forth below. Patient with chest pain while carrying groceries. Recent stents. Patient will receive a cardiac workup and be signed out to nitroglycerin separator operator. <Bere Hunt - Last Filed: 01/14/17 09:07>
[2017-01-13 19:13] LABS: Basophils % 0.5 %; Eosinophils # 0.1 K/mcL (0.0-0.6); Eosinophils % 1.8 %; Hematocrit 44.2 % (37.5-50.1); Hemoglobin 14.5 g/dL (12.9-16.9); Immature Granulocytes % 0.3 % (0-4); Lymphocytes % 15.3 %; Mean Corpuscular HGB Conc 32.8 g/dL (31.6-35.5); Mean Corpuscular Hemoglobin 30.3 pg (28.0-33.3); Mean Corpuscular Volume 92.5 fL (83.0-100.0); Mean Platelet Volume 9.7 fL (9.4-12.4); Monocytes # 0.7 K/mcL (0.0-1.3); Monocytes % 10.1 %; Neutrophils # 4.7 K/mcL (1.6-8.9); Platelet Count 233 K/mcL (140-400); Red Blood Count 4.78 M/mcL (4.19-5.50); Red Cell Distribution Width 13.1 % (11.5-14.5)
[2017-01-13 19:17] LABS: INR 1.1; Prothrombin Time 11.6 Seconds (9.4-12.1)
[2017-01-13 19:20] LABS: Activated Partial Thrombo Time 32.8 Seconds (26.0-36.0)
[2017-01-13 19:23] LABS: BUN/Creatinine Ratio 16 (6-26); Blood Urea Nitrogen 19 mg/dL (8-26); Carbon Dioxide 22 mEq/L (19-29); Chloride 109 mEq/L (98-109); Glucose 99 mg/dL (70-99); Osmolality,Calculated 292 (280-300); Potassium 3.9 mEq/L (3.5-4.5); Sodium 140 mEq/L (136-145); eGFR For African Americans > 60 (> 60); eGFR For Non-African Americans > 60 (> 60)
[2017-01-13] MEDS ORDERED: Nitroglycerin 0.4 MG TAB.SUBL SL STA (20:18)
--- NOTE | 2017-01-13 21:11 | Emergency Department Note ---
Disposition Clinical Impression: Chest pain Disposition: Admitted As Inpatient Condition: Good Referrals: Darcy Garcia MD [Primary Care Provider] - Forms: Work/School Release, ED Satisfaction Letter Time of Disposition: 21:13 Chest Pain HPI - General Chief Complaint: ED Abdominal Pain Stated Complaint: abd pain Time Seen by Provider: 01/13/17 18:48 Source: patient, family, EMS Mode of arrival: ambulatory Limitations: no limitations Vital Signs Reviewed: Yes Nursing Notes Reviewed: Yes - History of Present Illness HPI Narrative: 76-year-old gentleman who presents for sharp epigastric pain that began while he was carrying groceries just prior to arrival. He took nitroglycerin and his symptoms are resolved on my evaluation. He states that it was associated with mild shortness of breath which is gone at this time. He denies any radiation of his symptoms or diaphoresis. He states that it does feel partially like a heart attack that he had 3 months ago which led him to left heart catheter with stent. No other recent illness or injury. No lower abdominal pain, change in bowel movements or urination, cough, fever or chills, headache, vision problems , rashes or edema. Patient is comfortable at this time. Pt complaint: chest pain Severity scale (1-10): 0 - Related Data Home Medications Medication Instructions Recorded Confirmed Aspirin Enteric Coated [Aspirin EC] 81 mg PO DAILY 10/30/16 01/13/17 Juice Plus 1 cap PO DAILY 10/30/16 01/13/17 Ubidecarenone [Co Q-10] 100 mg PO DAILY 01/13/17 01/13/17 Previous Rx's Medication Instructions Recorded Metoprolol [Lopressor] 50 mg PO BID #0 11/02/16 Nitroglycerin 0.4 mg SL Q5MIN PRN #30 tab.subl 11/02/16 Rosuvastatin [Crestor] 40 mg PO HS #30 tablet 11/02/16 Ticagrelor [Brilinta] 90 mg PO BID #60 tablet 11/02/16 Allergies Allergy/AdvReac Type Severity Reaction Status Date / Time No Known Allergies Allergy Verified 05/12/16 15:28 All systems ED: reviewed and negative except as stated. Chest Pain PMH - Past Medical History Medical history: Reports: arthritis, coronary artery disease, hyperlipidemia, myocardial infarction Surgical history: Reports: non-contributory Psychiatric history: Reports: no psych history - Social History Smoking Status: Former smoker Alcohol use: Reports: none Drug use: Reports: none Physical Exam - Head Head exam: atraumatic, normocephalic, normal inspection - Eye Eye exam: Present: normal appearance, PERRL, EOMI - ENT ENT exam: normal exam, normal oropharynx, mucous membranes moist - Neck Neck exam: Present: normal inspection, full ROM, trachea midline - Chest Chest inspection: Present: normal inspection, symmetric chest wall rise. Chest wall is nontender. - Respiratory Respiratory exam: Clear to auscultation bilaterally without wheezes rales or rhonchi Cardiovascular Cardiovascular exam: Present: regular rate, normal rhythm, normal heart sounds - Abdominal Exam Abdominal exam: Present: soft, Non-Tender. - Extremities Exam Extremities exam: Present: normal inspection, full ROM. No pedal edema. - Back Exam Back exam: Present: normal inspection, full ROM. Absent: tenderness, CVA tenderness (R), CVA tenderness (L) - Neurological Exam Neurological exam: Present: alert, oriented X3, CN II-XII intact - Psychiatric Psychiatric exam: Present: normal affect, normal mood - Skin Skin exam: Present: warm, dry, intact, normal color - General Limitations: no limitations General appearance: alert, in no apparent distress Course - Reevaluation(s) Reevaluation #1: Troponin is negative here. EKG is unchanged other than inferior Q waves. Given patient's abrupt onset of symptoms just prior to arrival that remitted after nitroglycerin we will bring him in for chest pain. He is accepted by Dr. Frost. Time: 21:12 Vital Signs Temperature 97.9 F 01/13/17 18:42 Pulse Rate 72 01/13/17 18:42 Respiratory Rate 20 01/13/17 18:42 Blood Pressure 145/95 01/13/17 18:42 O2 Sat by Pulse Oximetry 96 01/13/17 18:42 Temperature 97.9 F 01/13/17 18:42 Pulse Rate 71 01/13/17 20:33 Respiratory Rate 15 01/13/17 20:33 Blood Pressure 139/94 01/13/17 20:33 O2 Sat by Pulse Oximetry 96 01/13/17 20:33 Oxygen Delivery Oxygen Delivery Room Air Chest Pain - Lab Data Result diagrams: 01/13/17 19:03 01/13/17 19:03 Lab Results 01/13/17 01/13/17 01/13/17 Range/Units 19:03 19:03 19:03 WBC 6.5 (4.3-11.1) K/mcL RBC 4.78 (4.19-5.50) M/mcL Hgb 14.5 (12.9-16.9) g/dL Hct 44.2 (37.5-50.1) % MCV 92.5 (83.0-100.0) fL MCH 30.3 (28.0-33.3) pg MCHC 32.8 (31.6-35.5) g/dL RDW 13.1 (11.5-14.5) % Plt Count 233 (140-400) K/mcL MPV 9.7 (9.4-12.4) fL Immature Gran % 0.3 (0-4) % Seg Neutrophils % 72.0 % Lymphocytes % 15.3 % Monocytes % 10.1 % Eosinophils % 1.8 % Basophils % 0.5 % Neutrophils # 4.7 (1.6-8.9) K/mcL Lymphocytes # 1.0 (0.6-4.6) K/mcL Monocytes # 0.7 (0.0-1.3) K/mcL Eosinophils # 0.1 (0.0-0.6) K/mcL Basophils # 0.0 (0.0-0.2) K/mcL PT 11.6 (9.4-12.1) Seconds INR 1.1 APTT 32.8 (26.0-36.0) Seconds Sodium 140 (136-145) mEq/L Potassium 3.9 (3.5-4.5) mEq/L Chloride 109 (98-109) mEq/L Carbon Dioxide 22 (19-29) mEq/L BUN 19 (8-26) mg/dL Creatinine 1.17 (0.72-1.25) mg/dL Est GFR ( Amer) > 60 (> 60) Est GFR (Non-Af Amer) > 60 (> 60) BUN/Creatinine Ratio 16 (6-26) Glucose 99 (70-99) mg/dL Calculated Osmolality 292 (280-300) Calcium 9.0 (8.6-10.8) mg/dL Troponin I (0-0.03) ng/mL 01/13/17 Range/Units 19:03 WBC (4.3-11.1) K/mcL RBC (4.19-5.50) M/mcL Hgb (12.9-16.9) g/dL Hct (37.5-50.1) % MCV (83.0-100.0) fL MCH (28.0-33.3) pg MCHC (31.6-35.5) g/dL RDW (11.5-14.5) % Plt Count (140-400) K/mcL MPV (9.4-12.4) fL Immature Gran % (0-4) % Seg Neutrophils % % Lymphocytes % % Monocytes % % Eosinophils % % Basophils % % Neutrophils # (1.6-8.9) K/mcL Lymphocytes # (0.6-4.6) K/mcL Monocytes # (0.0-1.3) K/mcL Eosinophils # (0.0-0.6) K/mcL Basophils # (0.0-0.2) K/mcL PT (9.4-12.1) Seconds INR APTT (26.0-36.0) Seconds Sodium (136-145) mEq/L Potassium (3.5-4.5) mEq/L Chloride (98-109) mEq/L Carbon Dioxide (19-29) mEq/L BUN (8-26) mg/dL Creatinine (0.72-1.25) mg/dL Est GFR ( Amer) (> 60) Est GFR (Non-Af Amer) (> 60) BUN/Creatinine Ratio (6-26) Glucose (70-99) mg/dL Calculated Osmolality (280-300) Calcium (8.6-10.8) mg/dL Troponin I 0.00 (0-0.03) ng/mL - EKG Data EKG attestation: Yes I reviewed and interpreted this EKG. EKG results narrative: EKG shows normal sinus rhythm at 71 with indeterminate axis. First-degree AV block with [place] of 221. No ST elevation or depression. No T-wave inversions. There are inferior Q waves which are new when compared with 11/01/2016. Attestation Statement - Attestation Attestation: I examined this patient and my medical decision-making was reviewed with the Resident Physician. I agree with the documented findings, disposition and treatment plan as described except to the extent set forth below. Patient pain free now with negative first troponin, nonischemic EKG. Admitted for further evaluation.
[2017-01-13] MEDS ORDERED: Naloxone 0.4 MG/ML INJ IVP PRN (23:43)
[2017-01-13] MEDS ORDERED: Acetaminophen 325 MG TABLET PO PRN (23:43)
[2017-01-13] MEDS ORDERED: Ondansetron 4 MG/2 ML VIAL IVP PRN (23:43)
[2017-01-13] MEDS ORDERED: Nitroglycerin 0.4 MG TAB.SUBL SL PRN (23:44)
[2017-01-14] MEDS: *HR* Ticagrelor 90 MG TABLET PO SCH ×2 (00:30→08:33)
[2017-01-14 06:55] LABS: Basophils # 0.1 K/mcL (0.0-0.2); Basophils % 0.7 %; Eosinophils # 0.1 K/mcL (0.0-0.6); Eosinophils % 1.9 %; Hematocrit 42.2 % (37.5-50.1); Hemoglobin 13.8 g/dL (12.9-16.9); Immature Granulocytes % 0.3 % (0-4); Lymphocytes # 0.9 K/mcL (0.6-4.6); Mean Corpuscular HGB Conc 32.7 g/dL (31.6-35.5); Mean Corpuscular Volume 91.7 fL (83.0-100.0); Mean Platelet Volume 10.1 fL (9.4-12.4); Monocytes # 0.7 K/mcL (0.0-1.3); Monocytes % 10.6 %; Neutrophils # 4.9 K/mcL (1.6-8.9); Platelet Count 210 K/mcL (140-400); Red Cell Distribution Width 13.1 % (11.5-14.5); Segmented Neutrophils % 73.5 %
--- NOTE | 2017-01-14 07:07 | Internal Med History&Physical ---
Date of Encounter: 01/14/17 Time of Encounter: 01:30 Assessment and Plan (1) Chest pain Status: Acute currently chestpain-free. To consider ACS due to recent stent placement. Telemetry monitoring, trend Troponins. Continue ASA, Brilinta, beta lavern. Will need to continue outpatient Cardiology f/up. Qualifiers: Chest pain type: unspecified Qualified Code(s): R07.9 - Chest pain, unspecified (2) Essential hypertension Status: Chronic BP noted to be well-controlled; continue home meds; (3) Hyperlipidemia Status: Chronic Qualifiers: Hyperlipidemia type: unspecified Qualified Code(s): E78.5 - Hyperlipidemia , unspecified Internal Medicine - H&P: HPI Chief complaint: chest pain Admitted From: Emergency Dept Plans for Post Hospital Care: Home History of present illness: Mr. Breaux is a 76 year old male with h/o- CAD and recent stent placement about 2 months ago, presents with c/o- retrosternal lower chest pain that started suddenly today afternoon. He was carrying grocery bags and came inside his house when he had a sharp tightness, 5/10 in intensity, in his lower retrosternal area, nonradiating, associated with some shortness of breath and chills. He took Nitroglycerine and also received ASA by EMS upon arrival and his chest tightness/pain gradually resolved by the time he presented to ER. He reports compliance to ASA and Brilinta since receiving stents, also goes to cardiac rehabilitation. Past Med Surg Social Fam HX - Past Medical History Medical history: arthritis, coronary artery disease, hyperlipidemia, hypertension, myocardial infarction Psychiatric history: no psych history - Past Surgical History Surgical History: non-contributory - Social History Smoking Status: Former smoker Smokeless Tobacco Status: No Alcohol use: none Drug use: none Occupational status: retired Current living situation: Home, With Family Activity Level: Independent ambulation Recent Out of Country Travel Within the Last 8 Weeks: No - Family History Father Living Status: Hx Family Cardiac Disorders: Yes (uncle, self) Hx Family Respiratory Disorders: No Hx Family Cancer: Yes Hx Family GI Disorders: No Hx Family Endocrine Disorder: No Hx Family Neuromuscular Disorders: No Hx Family Neurologic Disorders: No Hx Family HEENT Disorders: No Hx Family Autoimmune Disorders: No Internal Medicine - H&P: Meds Aspirin Enteric Coated [Aspirin EC] 81 mg PO DAILY 10/30/16 [History] Juice Plus 1 cap PO DAILY 10/30/16 [History] Metoprolol [Lopressor] 50 mg PO BID #0 11/02/16 [Rx] Nitroglycerin 0.4 mg SL Q5MIN PRN #30 tab.subl 11/02/16 [Rx] Rosuvastatin [Crestor] 40 mg PO HS #30 tablet 11/02/16 [Rx] Ticagrelor [Brilinta] 90 mg PO BID #60 tablet 11/02/16 [Rx] Ubidecarenone [Co Q-10] 100 mg PO DAILY 01/13/17 [History] Allergies No Known Allergies Allergy (Verified 05/12/16 15:28) All Systems PM: A 10-system review of systems was performed and is negative for pertinent findings except as documented above in the HPI. - Constitutional Constitutional: no chills, no fever(s), no night sweats - EENT Eyes: no change in vision, no discharge, no pain, no photophobia Ears: no ear discharge, no ear pain, no tinnitus Nose, mouth and throat: no dysphagia, no nasal discharge, no neck pain, no sore throat - Cardiovascular Cardiovascular ROS IM: chest pain, dyspnea - Respiratory Respiratory: no cough, no dyspnea, no wheezing, no excessive phlegm production - Gastrointestinal Gastrointestinal: no abdominal pain, no diarrhea, no hematemesis, no hematochezia, no melena, no nausea, no vomiting - Musculoskeletal Musculoskeletal ROS IM: no numbness, no tingling - Integumentary Integumentary IM: no rash, no unusual bruising - Neurological Neurological ROS: no confusion, no convulsions, no focal weakness, no numbness, no tingling, no tremor(s) - Hematologic/Lymphatic Hematologic/Lymphatic: no easy bruising - Constitutional Vitals: Temp Pulse Resp BP Pulse Ox 97.5 F L 64 20 111/67 98 01/14/17 06:57 01/14/17 06:57 01/14/17 06:57 01/14/17 06:57 01/14/17 06:57 General appearance: Present: A&O X 3, answers questions appropriately - Head Head exam: Present: atraumatic, normocephalic - Neck Neck exam general surgery: Present: supple, trachea midline. Absent: lymphadenopathy - Respiratory Respiratory exam: Present: CTAB. Absent: accessory muscle use, rales, rhonchi, wheezes - Cardiovascular Cardiovascular exam: Present: RRR, +S1, +S2. Absent: diastolic murmur, gallop, rubs, systolic murmur - GI/Abdominal GI/Abdominal exam: Present: normal bowel sounds, soft, no peritoneal signs. Absent: distended, tenderness - Extremities Exam Extremities exam: Present: full ROM, warm, radial pulses palpable and symetrical. Absent: calf tenderness, cyanotic, pedal edema - Neurological Exam Neurological exam: Present: CN II-XII intact, oriented X3, no focal deficits. Absent: pronater drift, facial droop, speech deficit - Skin Skin exam: Present: dry, intact Internal Med - H&P Results - Labs CBC & Chem 7: 01/14/17 06:30 01/14/17 06:30 Labs: Short CBC 01/14/17 Range/Units 06:30 WBC 6.7 (4.3-11.1) K/mcL Hgb 13.8 (12.9-16.9) g/dL Hct 42.2 (37.5-50.1) % Plt Count 210 (140-400) K/mcL Neutrophils # 4.9 (1.6-8.9) K/mcL - EKG Data -: EKG Interpreted by Myself EKG shows normal: sinus rhythm Rate: normal
[2017-01-14 07:25] LABS: BUN/Creatinine Ratio 14 (6-26); Blood Urea Nitrogen 15 mg/dL (8-26); Calcium 8.6 mg/dL (8.6-10.8); Carbon Dioxide 23 mEq/L (19-29); Chloride 111 mEq/L (98-109); Cholesterol 108 mg/dL (< 200); Glucose 88 mg/dL (70-99); HDL Cholesterol 36 mg/dL (40-59); LDL Cholesterol,Calculated 49 mg/dL (0-99); Magnesium 2.2 mg/dL (1.6-2.6); Osmolality,Calculated 292 (280-300); Phosphorous 3.1 mg/dL (2.3-4.7); Potassium 3.8 mEq/L (3.5-4.5); Sodium 141 mEq/L (136-145); Triglycerides 113 mg/dL (< 150); eGFR For African Americans > 60 (> 60); eGFR For Non-African Americans > 60 (> 60)
[2017-01-14] MEDS ORDERED: *HR* Ticagrelor 90 MG TABLET PO SCH (09:00)
[2017-01-14] MEDS ORDERED: Aspirin Enteric Coated 81 MG Tablet PO SCH (09:00)
[2017-01-14 11:21] VITALS: BP 118/70
--- NOTE | 2017-01-14 13:17 | Discharge Summary ---
Date of Encounter: 01/14/17 Time of Encounter: 10:30 - Discharge Diagnosis (1) Chest pain Priority: Primary Status: Resolved Comments: Patient has denied chest pain or shortness of breath since admission. Troponins negative 3. ECG reviewed without acute changes. ACS ruled out. Qualifiers: Chest pain type: unspecified Qualified Code(s): R07.9 - Chest pain, unspecified (2) Costochondral chest pain Priority: Primary Status: Suspected (3) Essential hypertension Priority: Secondary Status: Chronic Comments: Controlled with his regular home medications, follow-up outpatient (4) Hyperlipidemia Priority: Secondary Status: Chronic Comments: Lipid panel unremarkable. Recommend continue statin and low-cholesterol diet. Qualifiers: Hyperlipidemia type: mixed hyperlipidemia Qualified Code(s): E78.2 - Mixed hyperlipidemia - Discharge Medications Home Medications: Aspirin Enteric Coated [Aspirin EC] 81 mg PO DAILY 10/30/16 [History] Juice Plus 1 cap PO DAILY 10/30/16 [History] Metoprolol [Lopressor] 50 mg PO BID #0 11/02/16 [Rx] Nitroglycerin 0.4 mg SL Q5MIN PRN #30 tab.subl 11/02/16 [Rx] Rosuvastatin [Crestor] 40 mg PO HS #30 tablet 11/02/16 [Rx] Ticagrelor [Brilinta] 90 mg PO BID #60 tablet 11/02/16 [Rx] Ubidecarenone [Co Q-10] 100 mg PO DAILY 01/13/17 [History] Allergies/Adverse Reactions: Allergies No Known Allergies Allergy (Verified 05/12/16 15:28) Procedures/tests Complete & Pending: Procedures Performed prior 72 hours Category Date Time Status EKG [ECG 12 lead ECG] [ECG] Routine Y 01/14/17 08:01 Completed Date of admission: 01/13/17 21:30 Primary care physician: Darcy Garcia, Discharging clinician: Lili Church Anticipated date of discharge: 01/14/17 - Patient Status Disposition: Home, Self-Care Condition: Good Functional capacity at discharge: independent ambulation Overall status at discharge: patient is back to baseline - Discharge Instructions Instructions: Chest Pain (DC) Follow Up With: Darcy Garcia MD [Primary Care Provider] - Additional Instructions: Follow-up with primary care provider within 1-2 weeks - Diet and Activity Activity: increase activity as tolerated Diet: low fat, low cholesterol, low salt diet Hospital course: Mr. Breaux is a 76 year old male with past medical history of CAD status post NSTEMI and stent placement couple months prior to presentation, hypertension, hyperlipidemia, former tobacco abuse. Patient presented to the emergency department chief complaint of epigastric pain. Patient stating he was carrying in groceries when he began to feel sharp epigastric pain. He took a nitroglycerin and his symptoms resolved. He also endorses mild shortness of breath that also resolved. Patient states it does not feel similar to his prior feelings when he had his heart attack 3 months prior to presentation. Workup in the emergency department unremarkable. Chest negative. Patient was admitted to the hospitalist service for further evaluation and management. Patient denied chest pain or shortness of breath throughout his one night admission. Troponins were negative 3. No ECG changes. ACS ruled out. As his epigastric pain occurred when he was carrying in the groceries, suspect musculoskeletal etiology. He was discharged home in stable condition with close outpatient follow-up recommended. ITS Impressions Chest X-Ray 01/13/17 18:50 IMPRESSION: 1. No acute abnormality. D/ / Stanislaw Ro MD / Stanislaw Ro MD Interpreting Provider: Stanislaw Ro MD - Time Spent with Patient Total time spent providing and/or coordinating discharge services: - Constitutional Vitals: Temp Pulse Resp BP Pulse Ox 98.1 F 56 16 118/70 97 01/14/17 11:18 01/14/17 11:18 01/14/17 11:18 01/14/17 11:18 01/14/17 11:18 General appearance: Present: A&O X 3, pleasant, no acute distress, answers questions appropriately - Head Head exam: Present: atraumatic, normocephalic - Eye Eye exam: Present: PERRL, conjuntiva pink, sclera anicteric Pupils: Present: PERRL - Neck Neck exam general surgery: Present: supple, trachea midline. Absent: lymphadenopathy - Respiratory Respiratory exam: Present: CTAB. Absent: accessory muscle use, rales, respiratory distress, rhonchi, wheezes - Cardiovascular Cardiovascular exam: Present: RRR, +S1, +S2. Absent: diastolic murmur, gallop, rubs, systolic murmur - GI/Abdominal GI/Abdominal exam: Present: normal bowel sounds, soft, no peritoneal signs. Absent: distended, tenderness - Extremities Exam Extremities exam: Present: warm, radial pulses palpable and symetrical. Absent : calf tenderness, cyanotic, pedal edema - Neurological Exam Neurological exam: Present: alert, CN II-XII intact, normal gait, oriented X3, no focal deficits, strengths equal and symetr throughout. Absent: pronater drift, facial droop, speech deficit - Skin Skin exam: Present: dry, intact, normal color, warm
--- NOTE | 2017-01-14 18:39 | Electrocardiograph Report ---
[address] [place] [address] Test Date: 2017-01-13 Pat Name: James Breaux Department: 105 Room: 3B34 Gender: M [employer] Consultant: [facility] : 1940 Requested By: Taurus Reese Order Number: [id number] Reading MD: Vipin Hazel MD Measurements Intervals [place] Rate: 71 P: 48 AR: 221 QRS: -17 QRSD: 90 T: -8 QT: 394 QTc: 417 Interpretive Statements SINUS RHYTHM WITH FIRST DEGREE AV BLOCK INFERIOR MYOCARDIAL INFARCTION BASELINE ARTIFACT, OF INDETERMINATE AGE WITH POSTERIOR EXTENSION Electronically Signed On 01-14-2017 18:37:52 EDT by Vipin Hazel MD
--- NOTE | 2017-01-15 08:57 | Electrocardiograph Report ---
[address] [place] [address] Test Date: 2017-01-14 Pat Name: James Breaux Department: 113 Room: 3B Gender: M [employer] Operator: D[facility] : 1940 Requested By: Lili Church Order Number: [id number] Reading MD: Vipin Hazel MD Measurements Intervals [place] Rate: 58 P: -1 MD: 197 QRS: -17 QRSD: 99 T: 29 QT: 415 QTc: 412 Interpretive Statements SINUS BRADYCARDIA POSSIBLE INFERIOR MYOCARDIAL INFARCTION, PROBABLY OLD WITH POSTERIOR EXTENSION Electronically Signed On 01-15-2017 8:55:30 EDT by Vipin Hazel MD
== END 2017-01-14 13:53 | disposition home or self-care (01) ==
LOC: 3BNU 18:41 → EMEROO 18:41 → 3BNU 22:10
PROVIDERS: ADMIT Internal Medicine; ATTEND Nurse Practitioner Family

== ENCOUNTER 2017-09-14 21:56 | Observation (INO) ==
[2017-09-14] MEDS ORDERED: Nitroglycerin 0.4 MG TAB.SUBL SL ONE (22:22)
[2017-09-14] MEDS ORDERED: Ondansetron 4 MG/2 ML VIAL IVP ONE (22:22)
[2017-09-14 22:36] LABS: Basophils % 0.6 %; Eosinophils # 0.2 K/mcL (0.0-0.6); Eosinophils % 2.4 %; Hematocrit 43.1 % (37.5-50.1); Hemoglobin 14.2 g/dL (12.9-16.9); Immature Granulocytes % 0.4 % (0-4); Lymphocytes % 13.7 %; Mean Corpuscular HGB Conc 32.9 g/dL (31.6-35.5); Mean Corpuscular Hemoglobin 30.5 pg (28.0-33.3); Mean Corpuscular Volume 92.5 fL (83.0-100.0); Mean Platelet Volume 9.5 fL (9.4-12.4); Monocytes # 0.8 K/mcL (0.0-1.3); Monocytes % 10.7 %; Neutrophils # 5.1 K/mcL (1.6-8.9); Platelet Count 208 K/mcL (140-400); Red Blood Count 4.66 M/mcL (4.19-5.50); Red Cell Distribution Width 13.1 % (11.5-14.5); Segmented Neutrophils % 72.2 %
[2017-09-14 22:43] LABS: Prothrombin Time 10.5 Seconds (9.4-12.1)
[2017-09-14 22:45] LABS: Activated Partial Thrombo Time 32.1 Seconds (26.0-36.0)
[2017-09-14 22:54] LABS: BUN/Creatinine Ratio 17 (6-26); Blood Urea Nitrogen 22 mg/dL (8-23); Calcium 9.1 mg/dL (8.6-10.3); Carbon Dioxide 25 mEq/L (23-29); Chloride 108 mEq/L (98-107); Glucose 171 mg/dL (70-105); Osmolality,Calculated 293 (280-300); Potassium 3.9 mEq/L (3.5-5.1); Sodium 138 mEq/L (136-145); eGFR For African Americans > 60 (> 60); eGFR For Non-African Americans 53 (> 60)
--- NOTE | 2017-09-14 23:59 | Emergency Department Note ---
Disposition Clinical Impression: Unstable angina pectoris Disposition: Admitted As Inpatient Condition: Fair Time of Disposition: 00:00 Chest Pain HPI - General Chief Complaint: ED Chest Pain Stated Complaint: CP Time Seen by Provider: 09/14/17 22:07 Source: patient Limitations: no limitations Vital Signs Reviewed: Yes Nursing Notes Reviewed: Yes - History of Present Illness HPI Narrative: 77-year-old male presented to the emergency department with chest pain. Patient does have history of cardiac issues including 3 stents being placed in October 2016. He has had no comp occasions since then his blind lacer is Dr. Aguilar. He 2 months ago had changes in his medication including adding of a blood pressure medication otherwise there has been no recent changes. Said the chest pain occurred yesterday and has slowly worsened today he says it is worse on exertion. He says it is in the center of his chest about 4 out of 10 radiating up to his neck. He is a little nauseous but no vomiting. Patient said it does feel similar to last time he had a heart attack. Patient otherwise is having no complaints including abdominal pain, change in bowel bowel movement, pain with urination, headache, blurry vision, fever, nausea, vomiting, or tingling of the arms or legs. He is not having any shortness of breath. Severity scale (1-10): 0 - Related Data Home Medications Medication Instructions Recorded Confirmed Aspirin Enteric Coated [Aspirin EC] 81 mg PO DAILY 10/30/16 09/14/17 Juice Plus 1 cap PO BID 10/30/16 09/14/17 Ubidecarenone [Co Q-10] 100 mg PO DAILY 01/13/17 09/14/17 Vit C/Vit E/Lutein/Min/[place]-3 1 each PO DAILY 09/14/17 09/14/17 [Ocuvite Softgel] Previous Rx's Medication Instructions Recorded Metoprolol [Lopressor] 50 mg PO BID #0 11/02/16 Nitroglycerin 0.4 mg SL Q5MIN PRN #30 tab.subl 11/02/16 Rosuvastatin [Crestor] 40 mg PO HS #30 tablet 11/02/16 Ticagrelor [Brilinta] 90 mg PO BID #60 tablet 11/02/16 Allergies Allergy/AdvReac Type Severity Reaction Status Date / Time No Known Allergies Allergy Verified 05/12/16 15:28 Review of Systems: 10 point review of systems done and negative unless otherwise stated in history of present illness. All systems ED: reviewed and negative except as stated. Review of Systems: As Per HPI Chest Pain PMH - Past Medical History Medical history: Reports: arthritis, coronary artery disease, hyperlipidemia, hypertension, myocardial infarction Surgical history: Reports: non-contributory Psychiatric history: Reports: no psych history - Social History Smoking Status: Never smoker Alcohol use: Reports: none Drug use: Reports: none Physical Exam - General Limitations: no limitations General appearance: alert, in no apparent distress - Head Head exam: atraumatic, normocephalic, normal inspection - Eye Eye exam: Present: normal appearance, PERRL, EOMI - ENT ENT exam: normal exam, normal oropharynx, mucous membranes moist - Neck Neck exam: Present: normal inspection, full ROM, trachea midline - Chest Chest inspection: Present: normal inspection, symmetric chest wall rise - Respiratory Respiratory exam: Present: normal lung sounds bilaterally - Cardiovascular Cardiovascular exam: Present: regular rate, normal rhythm, normal heart sounds - Abdominal Exam Abdominal exam: Present: soft, Non-Tender. Absent: tenderness, distention, guarding, rebound, rigidity - Extremities Exam Extremities exam: Present: normal inspection, full ROM. Absent: tenderness, pedal edema - Back Exam Back exam: Present: normal inspection, full ROM. Absent: tenderness, CVA tenderness (R), CVA tenderness (L) - Neurological Exam Neurological exam: Present: alert, oriented X3 - Skin Skin exam: Present: warm, dry, intact, normal color Course Course Narrative: 77-year-old male presents to the emergency department with chest pain we will do normal chest pain workup including CBC, BMP, troponin as well as chest x-ray and EKG. We will give patient nitroglycerin. Urinary token 3 aspirin prior to coming here so will not give him any more. Most likely disposition will be admission due to patient's cardiac history. Vital Signs Temperature 97.9 F 09/14/17 21:57 Pulse Rate 70 09/14/17 21:57 Respiratory Rate 16 09/14/17 21:57 Blood Pressure 176/91 09/14/17 21:57 O2 Sat by Pulse Oximetry 99 09/14/17 21:57 Temperature 97.6 F 09/15/17 01:01 Pulse Rate 65 09/15/17 01:01 Respiratory Rate 15 09/15/17 01:01 Blood Pressure 108/62 09/15/17 01:01 O2 Sat by Pulse Oximetry 95 09/15/17 01:01 Oxygen Delivery Oxygen Delivery Room Air Chest Pain - MDM Narrative Medical decision making narrative: 77-year-old male presents to the emergency department complaining of chest pain. Patient has had 3 stents placed in 2016. Does see Dr. Aguilar. Chest pain workup showed normal chest x-ray EKG showed no acute changes with a first-degree AV block which is old based on old EKG. There is no elevated troponins or any other lab abnormalities. We did give him nitroglycerin which completely alleviated his pain. He took aspirin prior to arrival 3 baby so we did not give him any here. Due to patient's medical history of having stents placed as well as nitroglycerin alleviating his pain this most likely is cardiac in etiology and admission was warranted. Spoke with the patient he agrees this plan. I spoke with the hospitalist Dr. Santiago who agreed to admit the patient to their service for unstable angina. Patient is admitted in stable condition. Chest X-Ray 09/14/17 22:22 IMPRESSION: No acute process. D/ / Eris Daley MD / Eris Daley MD Interpreting Provider: Eris Daley MD - Medical Records Medical records reviewed: Yes I reviewed the patient's medical records. - Lab Data Lab results reviewed: Yes I reviewed the patient's lab results. Result diagrams: 09/14/17 22:30 09/14/17 22:30 Lab Results 09/14/17 09/14/17 09/14/17 Range/Units 22:30 22:30 22:30 WBC 7.1 (4.3-11.1) K/mcL RBC 4.66 (4.19-5.50) M/mcL Hgb 14.2 (12.9-16.9) g/dL Hct 43.1 (37.5-50.1) % MCV 92.5 (83.0-100.0) fL MCH 30.5 (28.0-33.3) pg MCHC 32.9 (31.6-35.5) g/dL RDW 13.1 (11.5-14.5) % Plt Count 208 (140-400) K/mcL MPV 9.5 (9.4-12.4) fL Immature Gran % 0.4 (0-4) % Seg Neutrophils % 72.2 % Lymphocytes % 13.7 % Monocytes % 10.7 % Eosinophils % 2.4 % Basophils % 0.6 % Neutrophils # 5.1 (1.6-8.9) K/mcL Lymphocytes # 1.0 (0.6-4.6) K/mcL Monocytes # 0.8 (0.0-1.3) K/mcL Eosinophils # 0.2 (0.0-0.6) K/mcL Basophils # 0.0 (0.0-0.2) K/mcL PT 10.5 (9.4-12.1) Seconds INR 1.0 APTT 32.1 (26.0-36.0) Seconds Sodium 138 (136-145) mEq/L Potassium 3.9 (3.5-5.1) mEq/L Chloride 108 H (98-107) mEq/L Carbon Dioxide 25 (23-29) mEq/L BUN 22 (8-23) mg/dL Creatinine 1.31 H (0.70-1.30) mg/dL Est GFR ( Amer) > 60 (> 60) Est GFR (Non-Af Amer) 53 L (> 60) BUN/Creatinine Ratio 17 (6-26) Glucose 171 H (70-105) mg/dL Calculated Osmolality 293 (280-300) Calcium 9.1 (8.6-10.3) mg/dL Troponin I (< 0.04) ng/mL 09/14/17 Range/Units 22:30 WBC (4.3-11.1) K/mcL RBC (4.19-5.50) M/mcL Hgb (12.9-16.9) g/dL Hct (37.5-50.1) % MCV (83.0-100.0) fL MCH (28.0-33.3) pg MCHC (31.6-35.5) g/dL RDW (11.5-14.5) % Plt Count (140-400) K/mcL MPV (9.4-12.4) fL Immature Gran % (0-4) % Seg Neutrophils % % Lymphocytes % % Monocytes % % Eosinophils % % Basophils % % Neutrophils # (1.6-8.9) K/mcL Lymphocytes # (0.6-4.6) K/mcL Monocytes # (0.0-1.3) K/mcL Eosinophils # (0.0-0.6) K/mcL Basophils # (0.0-0.2) K/mcL PT (9.4-12.1) Seconds INR APTT (26.0-36.0) Seconds Sodium (136-145) mEq/L Potassium (3.5-5.1) mEq/L Chloride (98-107) mEq/L Carbon Dioxide (23-29) mEq/L BUN (8-23) mg/dL Creatinine (0.70-1.30) mg/dL Est GFR ( Amer) (> 60) Est GFR (Non-Af Amer) (> 60) BUN/Creatinine Ratio (6-26) Glucose (70-105) mg/dL Calculated Osmolality (280-300) Calcium (8.6-10.3) mg/dL Troponin I < 0.03 (< 0.04) ng/mL - Radiology Data Radiology results reviewed: Yes I reviewed the patient's radiology results. - EKG Data EKG attestation: Yes I reviewed and interpreted this EKG. EKG results narrative: EKG done at 2203 and reviewed by myself and attending shows sinus rhythm with first degree AV block at a rate of 64, ME interval 216, QRS 89, QTc [address] changes, no acute T-wave abnormalities no signs of any heart strain or hypertrophy. This EKG is unchanged when compared with old EKG done 05/04/17. Overall this is normal EKG with no acute changes. Heart Score - Score History: Moderately Suspicious EKG: Normal Age: Greater than 65 Risk Factors: Equal/Greater than 3 risk factor or history of atherosclerotic disease Troponin: Less than normal limit HEART Score Total: 5 Attestation Statement - Attestation Attestation: I, Luis Gregory MD, personally evaluated this patient and discussed their management with the resident physician. I reviewed the resident's note and agree with the documented findings, medical decision making, and plan of care. 77-year-old male with known coronary artery disease presents to the emergency department with a complaint of some chest pain intermittently today which became worse this evening. The pain was in the left mid upper chest and did not radiate briefly to the left side of the neck. Some mild nausea associated with the pain. No diaphoresis. No shortness of breath. Patient also states that yesterday when he was walking he noticed some pain like a muscle tightness across his back which was worse with walking and resolved with resting. Patient has coronary artery stents which were placed less than a year ago. On examination patient is a well-developed well-nourished well-appearing elderly male in no acute distress. He is alert and oriented 3. There is no cyanosis or diaphoresis. Chest is nontender to palpation. Breath sounds are clear and equal bilaterally. Heart regular rate and rhythm. Abdomen soft and nontender with normal bowel sounds. Trace pedal edema. Labs reviewed. Troponin negative. Chest x-ray normal. No acute changes on EKG. The hospitalist, Dr. Santiago, was consulted and accepted admission of the patient.
[2017-09-15] MEDS ORDERED: Naloxone 0.4 MG/ML INJ IVP PRN (01:37)
--- NOTE | 2017-09-15 01:44 | Internal Med History&Physical ---
<Kevin Saucedo - Last Filed: 09/15/17 02:05> Date of Encounter: 09/15/17 Time of Encounter: 01:44 Assessment and Plan (1) Chest pain Current visit: Yes Status: Acute Unstable angina in patient with known CAD s/p 3 stents, HEART score 5 Concerning for ACS, exertional in nature relieved by nitroglycerin There are no obvious EKG changes for this patient, initial troponin is negative Patient is currently optimized with Brilinta, statin, nitroglycerin, BB, aspirin I will repeat an EKG in the morning, and trend troponins I will also repeat an Echocardiogram as he is having new symptoms and has not had a TTE in one year Qualifiers: Chest pain type: unspecified Qualified Code(s): R07.9 - Chest pain, unspecified (2) ELLA (acute kidney injury) Current visit: Yes Status: Acute Serum creatinine 1.31, BL 1.0 Patient has not had any urinary symptoms Bolus 500mL 0.9 Saline Check UA Recheck in AM (3) Essential hypertension Current visit: No Status: Chronic Currently well controlled on current meds (4) DVT prophylaxis Current visit: Yes Status: Acute I will give the sq heparin Internal Medicine - H&P: HPI Chief complaint: Chest pain Admitted From: Emergency Dept Plans for Post Hospital Care: Home History of present illness: Mr. Breaux is a 77 year old male with a history of hypertension, hyperlipidemia, colonic polyps, CAD status post 3 stents in October 2016 who presented to the emergency department with chest pain of 24 hours duration. He says that over the past week he has noticed increased fluctuation of his blood pressure with elevations that are typically not seen. About 24 hours ago he began experiencing left-sided chest pain while sitting, which was approximately 1 out of 10 in intensity and was intermittent in nature. He said that additionally he noticed some shortness of breath with exertion while shopping yesterday. So seated with this pain he does experience some. Pain does not seem to radiate anywhere else. He did not take anything for this pain initially arrest did seem to help. Additionally he says that today he did take 3 daily aspirin which did not help with the pain. He says this pain does not feel exactly like it did when he had his heart attack before. Previously he said that his pain was substernal with radiation towards the left side. Experienced any nausea, vomiting, headache, sudden changes in vision, muscle weakness. He does say that he and his are both getting over an upper respiratory infection which they have had for approximately 1 month and has caused some productive cough. He denies any fevers, chills, sweats associated with upper respiratory infection or his current chest pain. 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) Current living situation: Home - Independent Activity Level: Independent ambulation Recent Out of Country Travel Within the Last 8 Weeks: No - Family History Father Living Status: Hx Family Cardiac Disorders: Yes (uncle, self) Hx Family Respiratory Disorders: No Hx Family Cancer: Yes Hx Family GI Disorders: No Hx Family Endocrine Disorder: No Hx Family Neuromuscular Disorders: No Hx Family Neurologic Disorders: No Hx Family HEENT Disorders: No Hx Family Autoimmune Disorders: No Brother Hx Family Cancer: Yes (colon) Internal Medicine - H&P: Meds Aspirin Enteric Coated [Aspirin EC] 81 mg PO DAILY 10/30/16 [History] Juice Plus 1 cap PO BID 10/30/16 [History] Metoprolol [Lopressor] 50 mg PO BID #0 11/02/16 [Rx] Nitroglycerin 0.4 mg SL Q5MIN PRN #30 tab.subl 11/02/16 [Rx] Rosuvastatin [Crestor] 40 mg PO HS #30 tablet 11/02/16 [Rx] Ticagrelor [Brilinta] 90 mg PO BID #60 tablet 11/02/16 [Rx] Ubidecarenone [Co Q-10] 100 mg PO DAILY 01/13/17 [History] Vit C/Vit E/Lutein/Min/[place]-3 [Ocuvite Softgel] 1 each PO DAILY 09/14/17 [ History] 3 Allergy/AdvReac Type Severity Reaction Status Date / Time No Known Allergies Allergy Verified 05/12/16 15:28 All Systems PM: A 10-system review of systems was performed and is negative for pertinent findings except as documented above in the HPI. Review of systems: - Constitutional: Denies fevers, chills, weight loss, generalized fatigue - Head/Neck: Denies ANDERSON, neck stiffness - EENT: Denies vision changes/blurriness, tinnitus, auditory changes, rhinorrhea , congestion - CVS: Denies palpitations, orthopnea, edema, PND. Admits to chest pain as per HPI - Pulm: Admits to mild cough associated with upper respiratory infection which is improving - GI: Denies abdominal pain, anorexia, nausea, vomiting, diarrhea, constipation , melena - : Denies dysuria, increased frequency, urgency, hematuria, - Heme: Denies ease of bleeding or bruising - MSK: Denies joint pain, limited ROM - Skin: Denies rashes - Neuro: Denies ANDERSON, paresthesias, focal deficits, ataxia, - Constitutional Vitals: Temp Pulse Resp BP Pulse Ox 97.6 F 65 15 108/62 95 09/15/17 01:01 09/15/17 01:01 09/15/17 01:01 09/15/17 01:01 09/15/17 01:01 Exam: Gen.: Vitals noted. No acute distress. AAOx3 HEENT:Normocephalic, atraumatic Neck: Supple. No adenopathy. No carotid bruits Cardiac: RRR, no murmur, +S1/S2 Pulmonary: CTA bilaterally, no wheezes, rales or rhonchi, equal chest expansion Abdomen: soft, nontender, BS noted, no guarding Back: Nontender throughout. MSK: ROM intact, no joint swelling noted. No tenderness to palpation of chest Extremities: ~1+ edema in RLE which patient says is constant and has been worked up Neuro: A&Ox3, moves all extremities, no focal deficits Psych: Appropriate mood and behavior Internal Med - H&P Results - Labs CBC & Chem 7: 09/14/17 22:30 09/14/17 22:30 <Verenice Santiago - Last Filed: 09/15/17 05:32> Date of Encounter: 09/15/17 Internal Medicine - H&P: HPI History of present illness: Mr. Breaux is a 77 year old male All Systems PM: A 10-system review of systems was performed and is negative for pertinent findings except as documented above in the HPI. - Constitutional Vitals: Temp Pulse Resp BP Pulse Ox 98.0 F 65 16 122/79 97 09/15/17 04:37 09/15/17 04:37 09/15/17 04:37 09/15/17 04:37 09/15/17 04:37 Internal Med - H&P Results - Labs CBC & Chem 7: 09/14/17 22:30 09/15/17 04:34 Labs: BMP 09/15/17 04:34 Sodium 140 Potassium 4.1 Chloride 111 H Carbon Dioxide 23 BUN 19 Creatinine 1.17 Glucose 92 Calcium 8.5 L Cardiac Enzymes 09/15/17 Range/Units 04:34 Troponin I < 0.03 (< 0.04) ng/mL Urine 09/15/17 Range/Units 04:45 Urine Color Yellow (Yellow) Urine Clarity Clear (Clear) Urine pH 6.0 (5.0-8.0) pH Units Ur Specific [place] 1.014 (1.010-1.025) Urine Protein Negative (Neg-Trace) mg/dL Urine Glucose (UA) Normal (Normal) mg/dL - Attending Attestation I have seen and examined pt independently. I have discussed with resident physician Dr. Saucedo regarding the management plan. Agree with the documentation.
[2017-09-15] MEDS ORDERED: 0.9 % Sodium Chloride 500 ML IVC ONE (02:09)
[2017-09-15] MEDS ORDERED: Aspirin 325 MG TABLET PO ONE (02:29)
[2017-09-15 05:11] LABS: BUN/Creatinine Ratio 16 (6-26); Blood Urea Nitrogen 19 mg/dL (8-23); Calcium 8.5 mg/dL (8.6-10.3); Carbon Dioxide 23 mEq/L (23-29); Chloride 111 mEq/L (98-107); Glucose 92 mg/dL (70-105); Osmolality,Calculated 292 (280-300); Potassium 4.1 mEq/L (3.5-5.1); Sodium 140 mEq/L (136-145); eGFR For African Americans > 60 (> 60); eGFR For Non-African Americans > 60 (> 60)
[2017-09-15 05:13] LABS: Bilirubin,Urine Negative (Negative); Blood,Urine Negative (Negative); Clarity,Urine Clear (Clear); Color,Urine Yellow (Yellow); Glucose,Urine (UA) Normal (Normal); Ketones,Urine Negative (Negative); Leukocyte Esterase,Urine Negative (Negative); Nitrite,Urine Negative (Negative); Protein,Urine Negative (Neg-Trace); Specific Gravity,Urine 1.014 (1.010-1.025); Urobilinogen,Urine Normal (Normal)
[2017-09-15] MEDS ORDERED: *HR* Heparin 5,000 UNIT/ML VIAL SQ SCH (06:00)
[2017-09-15] MEDS ORDERED: *HR* Ticagrelor 90 MG TABLET PO SCH (09:00)
[2017-09-15] MEDS ORDERED: Aspirin Enteric Coated 81 MG Tablet PO SCH (09:00)
--- NOTE | 2017-09-15 11:17 | Cardiology Consult Note ---
Date of Encounter: 09/15/17 Time of Encounter: 09:30 Assessment and Plan (1) Chest pain Current Visit: Yes Status: Acute Per cardiology: -ADmitted with chest pain that occured at rest. -Denies aggrvating factors. Of note, states he does have back pain with exertion , however states he has had for "years." -States pain was allieved after ASA and nitro given in ER. -ECG with no acute ischemic changes. -Denies current chest pain. -TRoponins negative x3. -TTE pending. -Of note, patient reprorts increased stress at home. -Further recommendations penidng TTE. Qualifiers: Chest pain type: unspecified Qualified Code(s): R07.9 - Chest pain, unspecified (2) ELLA (acute kidney injury) Current Visit: Yes Status: Acute Per cardiology: -Mild ELLA on admission with creatinine of 1.32. Baseline 0.9-1.1. -Today creatinine 1.17. -Management per primary service. (3) CAD (coronary artery disease) Current Visit: Yes Status: Acute Per cardiology: -Known CAD with [facility] 10/2016 with 80% proximal LAD, 80% mid LAD with MIKY x2 placed , 40% proximal circumflex, 99% distal RCA with MIKY placed. -ON asa, statin, beta lavern, and brilinta. Denies missed doses of asa of brilinta. Educated on dual anti-platelet therapy uninterrupted for at least one year. -Previous TTE 10/2016 with LVEF 55-60%, mild diastolic dysfunction, no segmental wall motion abnormalities. -Current TTE pending. -Further recommendations pending TTE. Qualifiers: Coronary Disease-Associated Artery/Lesion type: tel[place] artery [place] vs. transplanted heart: telida heart Associated angina: with unspecified angina Qualified Code(s): I25.119 - Atherosclerotic heart disease of telida coronary artery with unspecified angina pectoris Discussion w patient/family: The assessment and plan as outlined above was discussed with the patient and/or family members who expressed understanding and agreement. All questions were answered. Thank you for involving us in the care of your patient. Please call with any questions. Discussed and reviewed with . History of Present Illness Consult date: 09/15/17 Requesting physician: Kevin Saucedo Consult reason: chest pain, recent PCI Chief complaint: chest pain History of present illness: Mr. Breaux is a 77 year old male with a relevant past medical history of NSTEMI, CAD s/p PCI, hyperlipidemia, HTN, fibromyalgia. Patient presented to [facility] with complaints of left sided chest pain. Patient states pain occured at rest. Patient denies aggravating factors. Of note, patient does report exertional chest pain, however states has had for "years." Patient states pain was relieved after ASA and nitro administered in the ER. Patient denies recurrence of chest pain since admission. Patient reports with his previous MA, his symptoms were mid sternal chest pain, states this is different than pervious MA. Patinet reports BP has been difficult to control lately and BP was 160s systolic at home prior to having chest pain. Patient reports has been under a lot more stress at home lately. Pateint reports has had a cough for about 4 weeks. Denies fevers, chills, nausea, or vomiting. Denies increased shortness of breath or increased fatigue. Denies current chest pain. Past Med Surg Social Fam HX - Past Medical History Attestation: Yes The following information was validated with the patient. Source: patient, old records reviewed, obtained from family Medical history: arthritis, coronary artery disease, hyperlipidemia, hypertension, myocardial infarction Psychiatric history: no psych history - Past Surgical History Surgical History: angioplasty/stent - Social History Smoking Status: Never smoker Smokeless Tobacco Status: No Alcohol use: none Drug use: none - Family History Father Living Status: Hx Family Cardiac Disorders: Yes (uncle, self) Hx Family Respiratory Disorders: No Hx Family Cancer: Yes Hx Family GI Disorders: No Hx Family Endocrine Disorder: No Hx Family Neuromuscular Disorders: No Hx Family Neurologic Disorders: No Hx Family HEENT Disorders: No Hx Family Autoimmune Disorders: No Brother Hx Family Cancer: Yes (colon) Medications and Allergies Aspirin Enteric Coated [Aspirin EC] 81 mg PO DAILY 10/30/16 [History] Juice Plus 1 cap PO BID 10/30/16 [History] Metoprolol [Lopressor] 50 mg PO BID #0 11/02/16 [Rx] Nitroglycerin 0.4 mg SL Q5MIN PRN #30 tab.subl 11/02/16 [Rx] Rosuvastatin [Crestor] 40 mg PO HS #30 tablet 11/02/16 [Rx] Ticagrelor [Brilinta] 90 mg PO BID #60 tablet 11/02/16 [Rx] Ubidecarenone [Co Q-10] 100 mg PO DAILY 01/13/17 [History] Vit C/Vit E/Lutein/Min/[place]etia-3 [Ocuvite Softgel] 1 each PO DAILY 09/14/17 [ History] Losartan [Cozaar] 25 mg PO DAILY 09/15/17 [History] 3 Allergy/AdvReac Type Severity Reaction Status Date / Time No Known Allergies Allergy Verified 05/12/16 15:28 All Systems Review: A 10-system review of systems was performed and is negative for pertinent findings except as documented above in the HPI. - Cardiovascular Cardiovascular: as per HPI, chest pain at rest Physical Examination Vital Signs, Last 4 Hours Temp Pulse Resp BP Pulse Ox 09/15/17 07:22 98.0 F 66 17 126/72 97 General: Conversant, No Apparent Distress HEENT: Atraumatic, Normocephaly, Mucus Membranes Moist Neck: No JVD, Normal carotid pulses Cardiac: Reg Rate and Rhythm, Normal S1 and S2, No Murmur Lungs: Normal Breath Sounds, No Wheeze, Rales, Rhonchi Neuro: Alert and responsive, No focal deficits noted Abdomen: Soft, Non-Tender Skin: No rashes noted on visualized skin Musculoskeletal: No Chest Wall Tenderness Extremities: No Clubbing, No Cyanosis, No Edema, Normal Pulses Results 09/14/17 22:30 09/15/17 04:34 Lab Results Impressions Chest X-Ray 09/14/17 22:22 IMPRESSION: No acute process. D/ / Eris Daley MD / Eris Daley MD Interpreting Provider: Eris Daley MD Active Medications Aspirin (Aspirin Ec) 81 mg PO DAILY [facility] Stop: 03/17/18 09:01 Last Admin: 09/15/17 09:04 Dose: Not Given Heparin Sodium (Porcine) (Heparin) 5,000 unit SQ Q12HCO [facility] Stop: 03/17/18 06:01 Last Admin: 09/15/17 05:05 Dose: Not Given Losartan Potassium (Cozaar) 25 mg PO DAILY [facility] PRN Reason: Protocol Stop: 03/17/18 09:31 Metoprolol Tartrate (Lopressor) 50 mg PO BID ABDIRASHID Stop: 03/17/18 09:01 Last Admin: 09/15/17 09:10 Dose: 50 mg Naloxone HCl (Narcan) 0.4 mg IVP Q2MIN PRN PRN Reason: Opioid Reversal Stop: 03/17/18 01:38 Rosuvastatin Calcium (Crestor) 40 mg PO HS [facility] Stop: 03/17/18 21:01 Ticagrelor (Brilinta) 90 mg PO BID ABDIRASHID Stop: 03/17/18 09:01 Last Admin: 09/15/17 09:10 Dose: 90 mg Laboratory Tests 09/14/17 09/14/17 09/14/17 22:30 22:30 22:30 Hgb 14.2 Creatinine 1.31 H Troponin I < 0.03 09/15/17 09/15/17 09/15/17 04:34 04:34 09:32 Hgb Creatinine 1.17 Troponin I < 0.03 < 0.03 - Imaging and Cardiology Chest Xray: report reviewed Echo: report reviewed Cardiac cath: report reviewed - EKG Interpretation EKG results cardiology: personally reviewed (ECG with SR, first degree block, HR 61.), other (Telemetry reviewed with average HR previous 12 hours noted to be 63, sinus rhythm. PVCs noted.) Consult Discharge Plan - Plan Referrals: Darcy Garcia MD [Primary Care Provider] -
--- NOTE | 2017-09-15 12:34 | Electrocardiograph Report ---
[place] [id number] Test Date: 2017-09-14 Pat Name: James Breaux Department: 104 Room: 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
[2017-09-15 13:46] VITALS: BP 116/69
--- NOTE | 2017-09-15 17:08 | Electrocardiograph Report ---
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
--- NOTE | 2017-09-15 17:10 | Discharge Summary ---
Date of Encounter: 09/15/17 Time of Encounter: 17:07 - Discharge Diagnosis (1) Chest pain Priority: Primary Status: Resolved Comments: Unstable angina in patient with known CAD s/p 3 stents, HEART score 5 Concerning for ACS, exertional in nature relieved by nitroglycerin There are no obvious EKG changes for this patient, troponin is negative times 3 Patient is currently optimized with Brilinta, statin, nitroglycerin, BB, aspirin cardiology was cosulted, had TTE showed EF 60-65% cardiology is ok to discharge with addtion of imdur 30 mg Qualifiers: Chest pain type: unspecified Qualified Code(s): R07.9 - Chest pain, unspecified (2) Essential hypertension Priority: Secondary Status: Chronic (3) Hyperlipidemia Priority: Secondary Status: Chronic Qualifiers: Hyperlipidemia type: unspecified Qualified Code(s): E78.5 - Hyperlipidemia , unspecified (4) ELLA (acute kidney injury) Priority: Secondary Status: Resolved - Discharge Medications Prescriptions: Isosorbide MONOnitrate (24 HR) [Imdur] 30 mg PO DAILY 90 Days #90 tab.er.24h Home Medications: Aspirin Enteric Coated [Aspirin EC] 81 mg PO DAILY 10/30/16 [History] Juice Plus 1 cap PO BID 10/30/16 [History] Metoprolol [Lopressor] 50 mg PO BID #0 11/02/16 [Rx] Nitroglycerin 0.4 mg SL Q5MIN PRN #30 tab.subl 11/02/16 [Rx] Rosuvastatin [Crestor] 40 mg PO HS #30 tablet 11/02/16 [Rx] Ticagrelor [Brilinta] 90 mg PO BID #60 tablet 11/02/16 [Rx] Ubidecarenone [Co Q-10] 100 mg PO DAILY 01/13/17 [History] Vit C/Vit E/Lutein/Min/[place]-3 [Ocuvite Softgel] 1 each PO DAILY 09/14/17 [ History] Isosorbide MONOnitrate (24 HR) [Imdur] 30 mg PO DAILY 90 Days #90 tab.er.24h [Rx] Losartan [Cozaar] 25 mg PO DAILY 09/15/17 [History] Allergies/Adverse Reactions: 3 Allergy/AdvReac Type Severity Reaction Status Date / Time No Known Allergies Allergy Verified 05/12/16 15:28 Procedures/tests Complete & Pending: Procedures Performed prior 72 hours Category Date Time Status ECG 12 lead ECG [ECG] AM 0600 Y 09/15/17 06:00 Completed EV echocardiogram Routine Y 09/15/17 02:28 Completed Date of admission: 09/15/17 00:21 Primary care physician: Darcy Garcia, Consults: 09/15/17 04:09 Consult to Cardiology [CONS] Routine Comment: Consulting Provider: Cardiology Dee Reason for Consult: Chest pain, Stents x3 11/13. Patient requesting consult, was scheduled to see as outpatient in one week Call Completed: No Discharging clinician: Edwige Patel Anticipated date of discharge: 09/15/17 - Patient Status Disposition: Home, Self-Care Condition: Good Functional capacity at discharge: independent ambulation - Discharge Instructions Follow Up With: Darcy Garcia MD [Primary Care Provider] - - Diet and Activity Diet: low fat, low cholesterol Interval History: Mr. Breaux is a 77 year old male with a history of hypertension, hyperlipidemia, colonic polyps, CAD status post 3 stents in October 2016 who presented to the emergency department with chest pain of 24 hours duration. He says that over the past week he has noticed increased fluctuation of his blood pressure with elevations that are typically not seen. About 24 hours ago he began experiencing left-sided chest pain while sitting, which was approximately 1 out of 10 in intensity and was intermittent in nature. Patient's chest pain resolved, had 2 sets of negative troponin. EKG has no significant changes. Canopy Inspector was consulted. Echocardiogram showed normal EF 60-65%. grade 1 diastolic dysfunction. Cardiology is okay to discharge with additional of imdur 30 mg once daily patient is discharged on stable condition. Hospital course: Saeid is a 77 year old male with a history of hypertension, hyperlipidemia, colonic polyps, CAD status post 3 stents in October 2016 who presented to the emergency department with chest pain of 24 hours duration. He says that over the past week he has noticed increased fluctuation of his blood pressure with elevations that are typically not seen. About 24 hours ago he began experiencing left-sided chest pain while sitting, which was approximately 1 out of 10 in intensity and was intermittent in nature. Patient's chest pain resolved, had 2 sets of negative troponin. EKG has no significant changes. Canopy Inspector was consulted. Echocardiogram showed normal EF 60-65%. grade 1 diastolic dysfunction. Cardiology is okay to discharge with additional of imdur 30 mg once daily patient is discharged on stable condition Time spent discussing smoking cessation with patient: more than 10 minutes - Time Spent with Patient Total time spent providing and/or coordinating discharge services: Less than 30 minutes - Constitutional Vitals: Temp Pulse Resp BP Pulse Ox 97.9 F 58 16 116/69 96 09/15/17 13:43 09/15/17 13:43 09/15/17 13:43 09/15/17 13:43 09/15/17 13:43 General appearance: Present: A&O X 3, pleasant, no acute distress Exam: CONSTITUTIONAL: patient appears as an age appropriate male in no acute distress. EYES Clear sclerae, bilateral pupils are equal, reactive to light. EMOI. RESPIRATORY: No accessory muscle use, bilateral clear to auscultation, no wheezing, no crackles/rales. CARDIOVASCULAR: Regular heart rate, normal S1 and S2, no murmurs GASTROINTESTINAL: bowel sounds present, soft, no tenderness. MUSCULOSKELETAL: Joints in normal range of motion, no clubbing, no edema, no cyanosis. Bilateral peripheral pulses 2+. NEUROLOGIC: CN II to XII are grossly intact, no focal neurological deficit.
== END 2017-09-15 17:48 | disposition home or self-care (01) ==
LOC: 3NENU 21:56 → EMEROO 21:56 → SUATTDRO 09-15 00:21 → 3NENU 09-15 00:30
PROVIDERS: ADMIT Internal Medicine; ATTEND Hospitalist

== ENCOUNTER 2020-04-08 20:31 | Inpatient (IN) ==
[2020-04-08] MEDS ORDERED: Ondansetron 4 MG/2 ML VIAL IVP ONE (20:51)
[2020-04-08] MEDS ORDERED: 0.9 % Sodium Chloride 1,000 ML IVC ONE (20:51)
[2020-04-08 21:32] LABS: Alanine Aminotransferase 25 Units/L (7-52); Albumin 4.1 g/dL (3.5-5.7); Albumin/Globulin Ratio 1.4 (1.1-2.2); Alkaline Phosphatase 103 Units/L (34-104); Aspartate Amino Transferase 26 Units/L (13-39); BUN/Creatinine Ratio 14 (6-26); Bilirubin,Direct 0.2 mg/dL (0.0-0.2); Bilirubin,Indirect 1.2 mg/dL (0.0-1.0); Bilirubin,Total 1.4 mg/dL (0.3-1.0); Blood Urea Nitrogen 16 mg/dL (8-23); Carbon Dioxide 26 mEq/L (23-29); Chloride 105 mEq/L (98-107); Globulin 2.9 g/dL (2.4-3.5); Glucose 135 mg/dL (70-105); Lipase 35 Units/L (11-82); Magnesium 1.8 mg/dL (1.6-2.6); Osmolality,Calculated 287 (280-300); Potassium 3.8 mEq/L (3.5-5.1); Sodium 137 mEq/L (136-145); Troponin I < 0.03 ng/mL (< 0.04); eGFR For African Americans > 60 (> 60); eGFR For Non-African Americans > 60 (> 60)
[2020-04-08 21:51] LABS: Basophils % 0.4 %; Hematocrit 46.8 % (37.5-50.1); Hemoglobin 15.4 g/dL (12.9-16.9); Immature Granulocytes % 0.2 % (0-4); Lymphocytes # 0.4 K/mcL (0.6-4.6); Lymphocytes % 7.4 %; Mean Corpuscular HGB Conc 32.9 g/dL (31.6-35.5); Mean Corpuscular Hemoglobin 31.2 pg (28.0-33.3); Mean Corpuscular Volume 94.7 fL (83.0-100.0); Mean Platelet Volume 10.2 fL (9.4-12.4); Monocytes # 0.7 K/mcL (0.0-1.3); Monocytes % 12.9 %; Neutrophils # 4.2 K/mcL (1.6-8.9); Platelet Count 167 K/mcL (140-400); Red Blood Count 4.94 M/mcL (4.19-5.50); Red Cell Distribution Width 12.4 % (11.5-14.5); Segmented Neutrophils % 79.1 %; White Blood Count 5.3 K/mcL (4.3-11.1)
[2020-04-08] MEDS ORDERED: Aspirin 325 MG TABLET PO ONE (23:11)
[2020-04-09] MEDS ORDERED: Ondansetron 4 MG/2 ML VIAL IVP PRN (00:25)
[2020-04-09] MEDS ORDERED: Naloxone 0.4 MG/ML INJ IVP PRN (00:25)
[2020-04-09] MEDS ORDERED: Perflutren Lipid Microsphere 1.3 ML in 0.9 % Sodium Chloride 8.7 ML IVP PRN (01:14)
[2020-04-09] MEDS: 0.9 % Sodium Chloride 1,000 ML IVC SCH ×2 (01:18→11:23)
[2020-04-09 01:44] LABS: Basophils % 0.6 %; Hematocrit 43.5 % (37.5-50.1); Hemoglobin 14.3 g/dL (12.9-16.9); Immature Granulocytes % 0.4 % (0-4); Lymphocytes # 0.5 K/mcL (0.6-4.6); Lymphocytes % 9.2 %; Mean Corpuscular HGB Conc 32.9 g/dL (31.6-35.5); Mean Corpuscular Volume 94.4 fL (83.0-100.0); Mean Platelet Volume 9.8 fL (9.4-12.4); Monocytes # 0.6 K/mcL (0.0-1.3); Monocytes % 12.6 %; Neutrophils # 3.8 K/mcL (1.6-8.9); Platelet Count 159 K/mcL (140-400); Red Blood Count 4.61 M/mcL (4.19-5.50); Red Cell Distribution Width 12.2 % (11.5-14.5); Segmented Neutrophils % 77.2 %; White Blood Count 4.9 K/mcL (4.3-11.1)
[2020-04-09 02:04] LABS: BUN/Creatinine Ratio 13 (6-26); Blood Urea Nitrogen 13 mg/dL (8-23); Calcium 8.2 mg/dL (8.6-10.3); Carbon Dioxide 24 mEq/L (23-29); Chloride 107 mEq/L (98-107); Glucose 121 mg/dL (70-105); Magnesium 1.8 mg/dL (1.6-2.6); Osmolality,Calculated 287 (280-300); Phosphorous 2.7 mg/dL (2.7-4.5); Sodium 138 mEq/L (136-145); Troponin I < 0.03 ng/mL (< 0.04); eGFR For African Americans > 60 (> 60); eGFR For Non-African Americans > 60 (> 60)
[2020-04-09 02:18] LABS: Thyroid Stimulating Hormone 1.074 mcIU/mL (0.340-5.600)
[2020-04-09 04:35] LABS: Bilirubin,Urine Negative (Negative); Blood,Urine Negative (Negative); Clarity,Urine Clear (Clear); Color,Urine Light-Yellow (Yellow); Glucose,Urine (UA) Normal (Normal); Ketones,Urine 10 mg/dL (Negative); Leukocyte Esterase,Urine Negative (Negative); Nitrite,Urine Negative (Negative); PH,Urine 5.5 pH Units (5.0-8.0); Protein,Urine Negative (Neg-Trace); Specific Gravity,Urine 1.014 (1.010-1.025); Urobilinogen,Urine Normal (Normal)
[2020-04-09] MEDS: *HR* Enoxaparin 40 MG/0.4 ML SYRINGE SQ SCH (08:04)
[2020-04-09] MEDS: hydroCHLOROthiazide 25 MG TABLET PO SCH (08:05)
[2020-04-09] MEDS: Aspirin Enteric Coated 81 MG Tablet PO SCH (08:05)
[2020-04-09] MEDS: Acetaminophen 325 MG TABLET PO PRN (08:05)
[2020-04-09 08:45] LABS: Estimated Average Glucose 131 mg/dl
[2020-04-09] MEDS: Doxycycline 100 MG CAPSULE PO SCH ×2 (14:26→20:30)
[2020-04-09] MEDS ORDERED: Isovue-370 500 ML BOTTLE IVP ONE (15:46)
[2020-04-10] MEDS: Aspirin Enteric Coated 81 MG Tablet PO SCH (08:57)
[2020-04-10] MEDS: Doxycycline 100 MG CAPSULE PO SCH ×2 (08:57→21:25)
[2020-04-10] MEDS: Cholecalciferol (D-3) 1,000 UNIT (25MCG) TABLET PO SCH (08:57)
[2020-04-10] MEDS: Acetaminophen 325 MG TABLET PO PRN (08:57)
[2020-04-10] MEDS: hydroCHLOROthiazide 25 MG TABLET PO SCH (08:57)
[2020-04-10] MEDS: *HR* Enoxaparin 40 MG/0.4 ML SYRINGE SQ SCH (08:58)
[2020-04-10 09:50] LABS: Basophils % 0.4 %; Hematocrit 45.9 % (37.5-50.1); Hemoglobin 15.4 g/dL (12.9-16.9); Immature Granulocytes % 0.2 % (0-4); Lymphocytes # 0.6 K/mcL (0.6-4.6); Lymphocytes % 6.7 %; Mean Corpuscular HGB Conc 33.6 g/dL (31.6-35.5); Mean Corpuscular Hemoglobin 31.1 pg (28.0-33.3); Mean Corpuscular Volume 92.7 fL (83.0-100.0); Mean Platelet Volume 10.2 fL (9.4-12.4); Monocytes # 1.1 K/mcL (0.0-1.3); Monocytes % 12.4 %; Neutrophils # 6.8 K/mcL (1.6-8.9); Platelet Count 142 K/mcL (140-400); Red Blood Count 4.95 M/mcL (4.19-5.50); Red Cell Distribution Width 12.2 % (11.5-14.5); Segmented Neutrophils % 80.3 %
[2020-04-10 09:55] LABS: White Blood Count 8.5 K/mcL (4.3-11.1)
[2020-04-10 10:45] LABS: Adenovirus Not Detected (Not Detect); Coronavirus 229E Not Detected (Not Detect); Coronavirus HKU1 Not Detected (Not Detect); Coronavirus NL63 Not Detected (Not Detect); Coronavirus OC43 Not Detected (Not Detect)
[2020-04-10 10:47] LABS: Bordetella Pertussis Not Detected (Not Detect); Chlamydophila pneumoniae Not Detected (Not Detect); Human Metapneumovirus Not Detected (Not Detect); Human Rhinovirus/Enterovirus Not Detected (Not Detect); Influenza A Subtype 2009 H1 Not Detected (Not Detect); Influenza B Not Detected (Not Detect); Mycoplasma pneumoniae Not Detected (Not Detect); Parainfluenza Virus 1 Not Detected (Not Detect); Parainfluenza Virus 2 Not Detected (Not Detect); Parainfluenza Virus 3 Not Detected (Not Detect); Parainfluenza Virus 4 Not Detected (Not Detect); Respiratory Syncytial Virus Not Detected (Not Detect)
[2020-04-11 11:06] VITALS: BP 126/82
[2020-04-11] MEDS: hydroCHLOROthiazide 25 MG TABLET PO SCH (12:09)
[2020-04-11] MEDS: Cholecalciferol (D-3) 1,000 UNIT (25MCG) TABLET PO SCH (12:09)
[2020-04-11] MEDS: Doxycycline 100 MG CAPSULE PO SCH (12:09)
[2020-04-11] MEDS: Aspirin Enteric Coated 81 MG Tablet PO SCH (12:09)
[2020-04-11] MEDS: *HR* Enoxaparin 40 MG/0.4 ML SYRINGE SQ SCH (12:21)
== END 2020-04-11 13:00 | disposition home or self-care (01) | DRG 312 ==
LOC: 3BNU 20:31 → EMEROOARM 20:31 → SUATTDRO 23:47 → 3BNU 04-09 00:20
PROVIDERS: ADMIT Student in an Organized Health Care Education/Training Program; ATTEND Internal Medicine

== ENCOUNTER 2021-12-03 22:12 | Observation (INO) ==
[2021-12-03 22:56] LABS: Basophils # 0.1 K/mcL (0.0-0.2); Basophils % 0.7 %; Eosinophils # 0.1 K/mcL (0.0-0.6); Eosinophils % 1.7 %; Hematocrit 46.2 % (37.5-50.1); Hemoglobin 15.3 g/dL (12.9-16.9); Immature Granulocytes % 0.3 % (0-4); Lymphocytes # 1.3 K/mcL (0.6-4.6); Lymphocytes % 18.3 %; Mean Corpuscular HGB Conc 33.1 g/dL (31.6-35.5); Mean Corpuscular Volume 93.5 fL (83.0-100.0); Mean Platelet Volume 9.7 fL (9.4-12.4); Monocytes # 0.6 K/mcL (0.0-1.3); Monocytes % 9.1 %; Neutrophils # 4.8 K/mcL (1.6-8.9); Platelet Count 241 K/mcL (140-400); Red Blood Count 4.94 M/mcL (4.19-5.50); Red Cell Distribution Width 12.7 % (11.5-14.5); Segmented Neutrophils % 69.9 %; White Blood Count 6.9 K/mcL (4.3-11.1)
[2021-12-03 23:43] LABS: BUN/Creatinine Ratio 14 (6-26); Blood Urea Nitrogen 16 mg/dL (8-23); Carbon Dioxide 27 mEq/L (23-29); Chloride 108 mEq/L (98-107); Glucose 120 mg/dL (70-105); Osmolality,Calculated 292 (280-300); Potassium 4.1 mEq/L (3.5-5.1); Sodium 140 mEq/L (136-145); eGFR For African Americans > 60 (> 60); eGFR For Non-African Americans > 60 (> 60)
[2021-12-03 23:44] LABS: Troponin I < 0.03 ng/mL (< 0.04)
[2021-12-04] MEDS ORDERED: Aspirin 81 MG TAB.CHEW PO ONE (00:19)
[2021-12-04] MEDS ORDERED: Aspirin 81 MG TAB.CHEW PO SCH (00:30)
[2021-12-04] MEDS ORDERED: Ondansetron 4 MG/2 ML VIAL IVP PRN (01:02)
[2021-12-04] MEDS ORDERED: Acetaminophen 325 MG TABLET PO PRN (01:02)
[2021-12-04] MEDS ORDERED: Naloxone 0.4 MG/ML INJ IVP PRN (01:02)
[2021-12-04] MEDS ORDERED: Nitroglycerin 0.4 MG TAB.SUBL SL PRN (01:04)
[2021-12-04] MEDS ORDERED: Regadenoson 0.4 MG/5 ML SYRINGE IVP ONE (06:20)
[2021-12-04 06:25] LABS: Hematocrit 43.9 % (37.5-50.1); Hemoglobin 14.7 g/dL (12.9-16.9); Mean Corpuscular HGB Conc 33.5 g/dL (31.6-35.5); Mean Corpuscular Hemoglobin 31.1 pg (28.0-33.3); Mean Corpuscular Volume 92.8 fL (83.0-100.0); Mean Platelet Volume 10.5 fL (9.4-12.4); Platelet Count 234 K/mcL (140-400); Red Blood Count 4.73 M/mcL (4.19-5.50); Red Cell Distribution Width 12.5 % (11.5-14.5); White Blood Count 7.1 K/mcL (4.3-11.1)
[2021-12-04 06:40] LABS: BUN/Creatinine Ratio 16 (6-26); Blood Urea Nitrogen 17 mg/dL (8-23); Calcium 8.8 mg/dL (8.6-10.3); Carbon Dioxide 23 mEq/L (23-29); Chloride 109 mEq/L (98-107); Potassium 4.1 mEq/L (3.5-5.1); Sodium 142 mEq/L (136-145); Troponin I < 0.03 ng/mL (< 0.04); eGFR For African Americans > 60 (> 60); eGFR For Non-African Americans > 60 (> 60)
[2021-12-04] MEDS ORDERED: Isovue-370 500 ML BOTTLE IVP ONE (08:49)
[2021-12-04 08:53] LABS: Glucose 104 mg/dL (70-105); Osmolality,Calculated 296 (280-300)
[2021-12-04] MEDS: Aspirin 81 MG TAB.CHEW PO SCH (09:31)
[2021-12-05] MEDS ORDERED: Regadenoson 0.4 MG/5 ML SYRINGE IVP ONE (05:58)
[2021-12-05 10:25] VITALS: BP 127/81; PULSE 91; TEMP 97.9; O2SAT 95
[2021-12-05] MEDS: Aspirin 81 MG TAB.CHEW PO SCH (11:26)
== END 2021-12-05 14:15 | disposition home or self-care (01) ==
LOC: EMEROOARM 22:12 → 3BNU 22:12
PROVIDERS: ADMIT Nurse Practitioner; ATTEND Internal Medicine

== ENCOUNTER 2021-12-31 09:56 | Observation (INO) ==
[2021-12-31] MEDS ORDERED: Isovue-370 500 ML BOTTLE IVP ONE (10:37)
[2021-12-31 11:19] LABS: Basophils % 0.4 %; Eosinophils # 0.1 K/mcL (0.0-0.6); Eosinophils % 1.3 %; Hemoglobin 14.8 g/dL (12.9-16.9); Immature Granulocytes % 0.4 % (0-4); Lymphocytes # 0.9 K/mcL (0.6-4.6); Lymphocytes % 12.3 %; Mean Corpuscular HGB Conc 32.9 g/dL (31.6-35.5); Mean Corpuscular Hemoglobin 30.4 pg (28.0-33.3); Mean Corpuscular Volume 92.4 fL (83.0-100.0); Mean Platelet Volume 10.4 fL (9.4-12.4); Monocytes # 0.7 K/mcL (0.0-1.3); Monocytes % 8.7 %; Neutrophils # 5.8 K/mcL (1.6-8.9); Platelet Count 223 K/mcL (140-400); Red Blood Count 4.87 M/mcL (4.19-5.50); Red Cell Distribution Width 12.4 % (11.5-14.5); Segmented Neutrophils % 76.9 %; White Blood Count 7.5 K/mcL (4.3-11.1)
[2021-12-31 11:22] LABS: Bilirubin,Urine Negative (Negative); Blood,Urine Negative (Negative); Clarity,Urine Clear (Clear); Color,Urine Light-Yellow (Yellow); Glucose,Urine (UA) Normal (Normal); Ketones,Urine Negative (Negative); Leukocyte Esterase,Urine Negative (Negative); Nitrite,Urine Negative (Negative); PH,Urine 6.5 pH Units (5.0-8.0); Protein,Urine Trace mg/dL (Neg-Trace); Specific Gravity,Urine 1.023 (1.010-1.025); Urobilinogen,Urine Normal (Normal)
[2021-12-31 11:27] LABS: BUN/Creatinine Ratio 18 (6-26); Blood Urea Nitrogen 20 mg/dL (8-23); Calcium 8.8 mg/dL (8.6-10.3); Carbon Dioxide 25 mEq/L (23-29); Chloride 109 mEq/L (98-107); Glucose 134 mg/dL (70-105); Osmolality,Calculated 295 (280-300); Potassium 3.8 mEq/L (3.5-5.1); Sodium 140 mEq/L (136-145); Troponin I < 0.03 ng/mL (< 0.04); eGFR For African Americans > 60 (> 60); eGFR For Non-African Americans > 60 (> 60)
[2021-12-31] MEDS ORDERED: Gadolinium Contrast Agent (WT Based) IV PRN (14:56)
[2021-12-31] MEDS ORDERED: Acetaminophen 325 MG TABLET PO PRN (14:58)
[2021-12-31] MEDS ORDERED: Naloxone 0.4 MG/ML INJ IVP PRN (14:58)
[2021-12-31] MEDS ORDERED: Ondansetron 4 MG/2 ML VIAL IVP PRN (14:58)
[2021-12-31] MEDS ORDERED: Perflutren Lipid Microsphere 1.3 ML in 0.9 % Sodium Chloride 8.7 ML IVP PRN (15:48)
[2021-12-31] MEDS ORDERED: GADOBUTROL 30 MMOL/30 ML VIAL IVP ONE (16:36)
[2021-12-31] MEDS: *HR* Heparin 5,000 UNIT/ML VIAL SQ SCH (17:30)
[2022-01-01 02:25] LABS: Troponin I < 0.03 ng/mL (< 0.04)
[2022-01-01 02:37] LABS: INR 1.1; Prothrombin Time 11.7 Seconds (9.4-12.1)
[2022-01-01 02:39] LABS: Thyroid Stimulating Hormone 1.443 mcIU/mL (0.340-5.600)
[2022-01-01 02:45] LABS: Prolactin 9.91 ng/mL (3.00-14.70)
[2022-01-01 03:07] LABS: Follicle Stimulating Hormone 4.85 mIU/mL (1.42-15.40)
[2022-01-01 03:08] LABS: Luteinizing Hormone 3.26 mIU/mL (1.24-7.80)
[2022-01-01 05:40] LABS: Basophils % 0.5 %; Eosinophils # 0.1 K/mcL (0.0-0.6); Eosinophils % 1.6 %; Hematocrit 42.7 % (37.5-50.1); Hemoglobin 14.1 g/dL (12.9-16.9); Immature Granulocytes % 0.3 % (0-4); Lymphocytes # 1.2 K/mcL (0.6-4.6); Lymphocytes % 16.2 %; Mean Corpuscular Hemoglobin 30.5 pg (28.0-33.3); Mean Corpuscular Volume 92.2 fL (83.0-100.0); Mean Platelet Volume 10.6 fL (9.4-12.4); Monocytes # 0.7 K/mcL (0.0-1.3); Monocytes % 9.7 %; Neutrophils # 5.3 K/mcL (1.6-8.9); Platelet Count 210 K/mcL (140-400); Red Blood Count 4.63 M/mcL (4.19-5.50); Red Cell Distribution Width 12.7 % (11.5-14.5); Segmented Neutrophils % 71.7 %; White Blood Count 7.4 K/mcL (4.3-11.1)
[2022-01-01] MEDS: *HR* Heparin 5,000 UNIT/ML VIAL SQ SCH (05:52)
[2022-01-01 06:19] LABS: Estimated Average Glucose 123 mg/dl; Hemoglobin A1C 5.9 %
[2022-01-01 06:23] LABS: Chol/HDL Ratio 2.8 (0-4.9)
[2022-01-01 07:22] VITALS: PULSE 67
[2022-01-01] MEDS ORDERED: Cholecalciferol (D-3) 1,000 UNIT (25MCG) TABLET PO SCH (09:00)
[2022-01-01] MEDS ORDERED: Aspirin Enteric Coated 81 MG Tablet PO SCH (09:00)
[2022-01-01 11:28] VITALS: BP 117/72; TEMP 98; O2SAT 96
== END 2022-01-01 14:22 | disposition home or self-care (01) ==
LOC: EMEROOARM 09:56 → 3BNU 09:56 → SUATTDRO 13:11 → 3BNU 13:32
PROVIDERS: ADMIT Internal Medicine; ATTEND Nurse Practitioner